=== PATIENT | female | born 1940 | race Caucasian/White ===

== ENCOUNTER 2017-08-29 18:36 | Inpatient (IN) | payer MEDICARE, BC ==
[~2017-08-29] VITALS: Ht 152.4 cm; Wt 75.0 kg
[~2017-08-29 18:36] MED LIST: LIDOCAINE 2 GM/D5W 500 ML BAG ONE
[2017-08-29 18:45] VITALS: Ht 152.4 cm; Wt 75.0 kg
[2017-08-29] MEDS ORDERED: MAGNESIUM SULFATE 2 GM/50 ML 50 ML ONE (18:48)
[2017-08-29] MEDS ORDERED: MAGNESIUM SULFATE 1 GM/D5W 0 ML ONE (18:48)
[2017-08-29] MEDS ORDERED: AMIODARONE 150 MG INJ ONE (18:49)
[2017-08-29] MEDS ORDERED: ONDANSETRON 4 MG INJ IV STA (18:54)
[2017-08-29] MEDS ORDERED: AMIODARONE 900 MG in DEXTROSE 5% 482 ML IV SCH (19:00)
[2017-08-29] MEDS ORDERED: AMIODARONE 150MG/D5W BOLUS 100 ML IV ONE (19:00)
--- NOTE | 2017-08-29 19:36 | RADRPT ---
PROCEDURE: XR Chest. CLINICAL INDICATION: Shortness of breath. Sepsis.. TECHNIQUE: Single frontal chest x-ray. COMPARISON: None. FINDINGS: Patient is status post sternotomy. Heart is mildly enlarged.. There is no congestive heart failure. . No focal infiltrate is seen. There is no pleural effusion. There is no pneumothorax. The osseou s structures are unremarkable. IMPRESSION: Status post sternotomy. Cardiomegaly. No CHF or infiltrate. RPTAT: [facility]K .Esteban Pichardo MD, Date Time Electronically viewed and signed by .Esteban Pichardo MD, on 08/29/2017 19:36 .K/
[2017-08-29 19:43] LABS: BASOPHILS % 0.3 % (0.0-2.0); EOSINOPHILS % 0.1 % (0.0-7.0); HEMATOCRIT 37.3 % (37.0-47.0); HEMOGLOBIN 11.3 g/dl (12.0-16.0); LYMPHOCYTES # 1.1 10^3/ul (0.8-2.9); LYMPHOCYTES % 12.2 % (15.0-51.0); MEAN CORPUSCULAR HEMOGLOBIN 26.6 pg (29.0-33.0); MEAN CORPUSCULAR HGB CONC 30.3 g/dl (32.0-37.0); MEAN CORPUSCULAR VOLUME 87.8 fl (82.0-101.0); MEAN PLATELET VOLUME 12.2 fl (7.4-10.4); MONOCYTE # 0.7 10^3/ul (0.3-0.9); MONOCYTES % 7.3 % (0.0-11.0); NEUTROPHIL # 7.2 10^3/ul (1.6-7.5); NEUTROPHILS % 79.7 % (39.0-77.0); PLATELET COUNT 145 10^3/UL (140-415); RED BLOOD COUNT 4.25 10^6/ul (4.20-5.40); RED CELL DISTRIBUTION WIDTH 16.1 % (11.5-14.5); WHITE BLOOD COUNT 9.1 10^3/ul (4.8-10.8)
[2017-08-29] MEDS: LIDOCAINE 2 GM/D5W 500 ML IV SCH (20:04)
[2017-08-29 20:16] LABS: INR 1.26; PROTIME 15.9 Sec (12.2-14.2); PT RATIO 1.2
[2017-08-29] MEDS ORDERED: CEFEPIME 2GM/50 ML (PMX) 50 ML IVPB STA (20:34)
[2017-08-29] MEDS ORDERED: SODIUM CHLORIDE 0.9% 1L BAG IV* STA (20:34)
[2017-08-29 20:35] LABS: ALBUMIN 3.8 g/dl (3.3-4.9); ALBUMIN/GLOBULIN RATIO 1.35; BILIRUBIN,INDIRECT 0.4 mg/dl (0-1.1); BILIRUBIN,TOTAL 0.4 mg/dl (0.2-1.3); CALCIUM 8.3 mg/dl (8.4-10.2); CREATININE 1.51 mg/dl (0.44-1.00); MAGNESIUM 2.1 mg/dl (1.7-2.5); POTASSIUM 4.9 mmol/L (3.5-5.1); TOTAL PROTEIN 6.6 g/dl (6.1-8.1)
[2017-08-29 20:41] LABS: PARTIAL THROMBOPLASTIN TIME 30.6 Sec (25.0-35.0)
[2017-08-29 20:48] LABS: TROPONIN-I 0.263 ng/ml (0.00-0.12)
[2017-08-29] MEDS ORDERED: LEVO75TA5 PO (20:54)
[2017-08-29] MEDS ORDERED: GLIP-95 PO (20:54)
[2017-08-29] MEDS ORDERED: RANI300T PO (20:55)
[2017-08-29] MEDS ORDERED: ATOR40TA68 PO (20:55)
[2017-08-29] MEDS ORDERED: CLOP75TA4 PO (20:56)
[2017-08-29] MEDS ORDERED: RABE20TA27 PO (20:56)
[2017-08-29] MEDS ORDERED: NEBI20TA2 PO (20:57)
[2017-08-29] MEDS ORDERED: VALS320T11 PO (20:57)
[2017-08-29] MEDS ORDERED: METF500T3 PO (20:57)
[2017-08-29] MEDS ORDERED: LIRA0.6P2 SQ (20:58)
[2017-08-29] MEDS ORDERED: CANA300T PO (21:00)
[2017-08-29] MEDS ORDERED: VANCOMYCIN 1 GM (PMX) 250 ML IVPB ONE (21:00)
[2017-08-29] MEDS ORDERED: ESTR10TA6 VG (21:00)
[2017-08-29] MEDS ORDERED: HEPARIN 25000 UNITS/250 ML 250 ML IV STA (21:16)
[2017-08-29 21:30] VITALS: TEMP 98.5
[2017-08-29] MEDS ORDERED: ACETAMINOPHEN 650MG/20.3ML CUP PO PRN (21:30)
--- NOTE | 2017-08-29 21:39 | ERD ---
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 While this patient was in route to the hospital this patient did have a run of ventricular tachycardia according to EMS. The patient stated that she was having some mild chest discomfort however denied having any sharp chest pain. According to EMS this patient's ventricular tachycardia subsided on arrival to the emergency room. The patient states that she has some chest discomfort but denies any chest pain , she states that she has mild shortness of breath and does feel mildly nauseous. She does state that she has a history of quadruple bypass, and subsequent stents placed in the bypass grafts. This patient denies any aggravating or relieving factors for her symptoms and was brought to the ER for further evaluation ROS All systems reviewed and are negative except as per history of present illness. Medications Home Meds Reported Medications Zolpidem Tartrate* (Zolpidem Tartrate* ER) 12.5 Mg Tab.mphase, 12.5 MG PO HS Y for INSOMNIA, #30 TAB.SA 08/29/17 Aspirin* (Aspirin* EC) 81 Mg Tablet.dr, 81 MG PO DAILY, TAB 08/29/17 Folic Acid* (Folic Acid*) 0.4 Mg Tablet, 0.4 MG PO DAILY, TAB 08/29/17 Cholecalciferol (Vitamin D3) (Vitamin D-3) 2,000 Unit Tablet, 2000 UNIT PO DAILY , TAB 08/29/17 Cyanocobalamin* (Vitamin B12*) 500 Mcg Tab, 500 MCG PO DAILY, TAB 08/29/17 Pyridoxine Hcl* (Vitamin B-6*) 100 Mg Tablet, 100 MG PO DAILY, TAB 08/29/17 Insulin Glargine,Hum.rec.anlog (Touteresa Solostar) 300 Unit/1 Ml Insuln.pen, 0 SQ QAM inject 6-8 units qam 08/29/17 Canagliflozin (Invokana) 300 Mg Tablet, 300 MG PO DAILY, TAB 08/29/17 Estradiol (Yuvafem) 10 Mcg Tablet, 10 MCG VG TWICE A WEEK, TAB 08/29/17 Liraglutide (Victoza 3-Ron) 0.6 Mg/0.1 Ml Pen.injctr, 1.8 MG SQ DAILY, SYR 08/29/17 Nebivolol Hcl* (Bystolic*) 20 Mg Tablet, 20 MG PO DAILY, #30 TAB 08/29/17 Valsartan* (Diovan*) 320 Mg Tablet, 320 MG PO DAILY, TAB 08/29/17 Metformin Hcl* (Metformin Hcl* ER) 500 Mg Tab.sr.24h, 1000 MG PO BID, #30 TAB 08/29/17 Rabeprazole Sodium* (Rabeprazole Sodium*) 20 Mg Tablet.dr, 20 MG PO DAILY, TAB 08/29/17 Clopidogrel Bisulfate* (Clopidogrel Bisulfate*) 75 Mg Tablet, 75 MG PO DAILY, # 30 TAB 08/29/17 Atorvastatin* (Atorvastatin*) 40 Mg Tablet, 40 MG PO QHS, #30 TAB 08/29/17 Ranitidine Hcl* (Ranitidine Hcl*) 300 Mg Tablet, 300 MG PO DAILY, #30 TAB 08/29/17 Levothyroxine Sodium* (Levothyroxine Sodium*) 75 Mcg Tablet, 75 MCG PO BEFORE BREAKFAST, #30 TAB 08/29/17 Glipizide* (Glipizide*) 10 Mg Tablet, 10 MG PO AC BREAKFAST, TAB 08/29/17 Allergies Allergies: Coded Allergies: amlodipine (Unverified Allergy, Unknown, 08/29/17) codeine (Unverified Allergy, Unknown, 08/29/17) fenofibrate (Unverified Allergy, Unknown, 08/29/17) hydrochlorothiazide (Unverified Allergy, Unknown, 08/29/17) ramipril (Unverified Allergy, Unknown, 08/29/17) Uncoded Allergies: OPIOIDS-MORPHINE AND RELATED (Allergy, Unknown, 08/29/17) PMhx/Soc History of Surgery: Yes (QUAD BY-PASS 1958) Anesthesia Reaction: No Hx Neurological Disorder: No Hx Respiratory Disorders: No Hx Cardiac Disorders: Yes (HTN, STENTS, ID) Hx Psychiatric Problems: No Hx Miscellaneous Medical Probl: Yes (DM, UTI) Hx Alcohol Use: No Hx Substance Use: No Hx Tobacco Use: No Smoking Status: Never smoker Physical Exam Vitals Vital Signs Date Time Temp Pulse Resp B/P Pulse Ox O2 Delivery O2 Flow Rate FiO2 08/29/17 21:30 98.5 98 26 94/66 100 Nasal Cannula 3.0 08/29/17 21:00 98.5 100 26 91/62 100 Nasal Cannula 3.0 08/29/17 20:31 99.3 99 23 131/74 100 Nasal Cannula 3.0 08/29/17 20:00 99.3 97 32 126/60 100 Nasal Cannula 3.0 08/29/17 19:45 99.3 98 29 136/64 99 Nasal Cannula 3.0 08/29/17 19:20 89 Nasal Cannula 2.0 08/29/17 19:01 100 18 136/74 93 Nasal Cannula 2.0 08/29/17 18:58 102 118/88 95 Non Rebreather 5.0 08/29/17 18:53 117 99/66 08/29/17 18:45 220 30 152/67 86 08/29/17 18:42 Non Rebreather 5 08/29/17 18:42 98.0 114 152/67 100 Non Rebreather 5.0 Physical Exam Const: [] Head: Atraumatic Eyes: Normal Conjunctiva ENT: Normal External Ears, Nose and Mouth. Neck: Full range of motion..~ No meningismus. Resp: Clear to auscultation bilaterally Cardio: Regular rate and rhythm, no murmurs Abd: Soft, non tender, non distended. Normal bowel sounds Skin: No petechiae or rashes Back: No midline or flank tenderness Ext: No cyanosis, or edema Neur: Awake and alert Psych: Normal Mood and Affect Result Diagram: 08/29/17 1905 08/29/172015 Results 24 hrs Laboratory Tests Test 08/29/17 19:05 08/29/17 20:16 08/29/17 20:49 08/29/17 21:05 White Blood Count 9.110^3/ul Red Blood Count 4.2510^6/ul Hemoglobin 11.3g/dl Hematocrit 37.3% Mean Corpuscular Volume 87.8fl Mean Corpuscular Hemoglobin 26.6pg Mean Corpuscular Hemoglobin Concent 30.3g/dl Red Cell Distribution Width 16.1% Platelet Count 11102^3/UL Mean Platelet Volume 12.2fl Neutrophils % 79.7% Lymphocytes % 12.2% Monocytes % 7.3% Eosinophils % 0.1% Basophils % 0.3% Nucleated Red Blood Cells % 0.0/100WBC Neutrophils # 7.210^3/ul Lymphocytes # 1.110^3/ul Monocytes # 0.710^3/ul Eosinophils # 0.010^3/ul Basophils # 0.010^3/ul Nucleated Red Blood Cells # 0.010^3/ul Prothrombin Time 15.9Sec Prothrombin Time Ratio 1.2 INR International Normalized Ratio 1.26 Activated Partial Thromboplast Time 30.6Sec Bedside Glucose 215mg/dL Sodium Level 129mmol/L Potassium Level 4.9mmol/L Chloride Level 93mmol/L Carbon Dioxide Level 14mmol/L Anion Gap 27 Blood Urea Nitrogen 25mg/dl Creatinine 1.51mg/dl Glucose Level 311mg/dl Lactic Acid Level 8.4mmol/L 6.9mmol/L Calcium Level 8.3mg/dl Magnesium Level 2.1mg/dl Total Bilirubin 0.4mg/dl Direct Bilirubin 0.00mg/dl Indirect Bilirubin 0.4mg/dl Aspartate Amino Transf (AST/SGOT) 59IU/L Alanine Aminotransferase (ALT/SGPT) 49IU/L Alkaline Phosphatase 66IU/L Troponin I 0.263ng/ml Total Protein 6.6g/dl Albumin 3.8g/dl Globulin 2.80g/dl Albumin/Globulin Ratio 1.35 Urine Color MARY KAY Urine Clarity SLIGHTLY CLOUDY Urine pH 5.0 Urine Specific [place] 1.017 Urine Ketones TRACEmg/dL Urine Nitrite NEGATIVEmg/dL Urine Bilirubin NEGATIVEmg/dL Urine Urobilinogen NEGATIVEmg/dL Urine Leukocyte Esterase 3+Angelina/ul Urine Microscopic RBC 13/HPF Urine Microscopic WBC 66/HPF Urine Squamous Epithelial Cells FEW/HPF Urine Bacteria MODERATE/HPF Urine Hemoglobin 2+mg/dL Urine Glucose 3+mg/dL Urine Total Protein 1+mg/dl Current Medications Medications (Trade) Dose Ordered Sig/Ke Route PRN Reason Start Time Stop Time Status Last Admin Dose Admin Amiodarone HCl 100 ml @ 600 mls/hr ONCE ONCE IV 08/29/17 19:00 08/29/17 19:09 DC Magnesium Sulfate/ Dextrose 0 ml @ STK-MED ONCE .ROUTE 08/29/17 18:48 08/29/17 18:49 DC Magnesium Sulfate (Magnesium Sulfate 2 Gm/50 ml) 50 ml @ STK-MED ONCE .ROUTE 08/29/17 18:48 08/29/17 18:49 DC Amiodarone HCl 150 mg 150 mg STK-MED ONCE .ROUTE 08/29/17 18:49 08/29/17 18:50 DC Amiodarone HCl/ Dextrose (Cordarone Iv/ D5W) 500 ml @ 0 mls/hr Q0M IV 08/29/17 19:00 08/30/17 18:59 08/29/17 19:13 Ondansetron HCl 4 mg 4 mg ONCE STAT IV 08/29/17 18:54 08/29/17 18:55 DC 08/29/17 19:25 Lidocaine HCl/ Dextrose 500 ml @ 15 mls/hr Q24H IV 08/29/17 20:30 08/29/17 20:04 Cefepime HCl 50 ml @ 100 mls/hr ONCE STAT IVPB 08/29/17 20:34 08/29/17 21:03 DC 08/29/17 20:55 Vancomycin HCl (Vancocin) 250 ml @ 125 mls/hr ONCE ONCE IVPB 08/29/17 21:00 08/29/17 22:59 08/29/17 20:55 Sodium Chloride 2330 ml 2,330 ml BOLUS OVER 2 HOURS STAT IV* 08/29/17 20:34 08/29/17 20:35 DC 08/29/17 20:56 Heparin Sodium (Porcine) (Heparin 42799 Units/250 ml) 250 ml @ 0 mls/hr ONCE STAT IV 08/29/17 21:16 08/29/17 21:17 DC 08/29/17 22:41 Ondansetron HCl (Zofran Tab) 4 mg Q6H PRN PO NAUSEA AND/OR VOMITING 08/29/17 21:30 Acetaminophen (Tylenol Liquid) 650 mg Q6H PRN PO PAIN LEVEL 1-3 OR FEVER 08/29/17 21:30 Pantoprazole (Protonix Iv) 40 mg DAILY@06 IV 08/30/17 06:00 Procedures/MDM Chest X-ray 1V Interpreted by me: Soft Tissue: No acute abnormalities Bones: No acute abnormalities Mediastinum/Cardiac Silhouette/Lungs: [No acute abnormalities] EKG: #1 Rate/Rhythm: Sinus tachycardia QRS, ST, T-waves: Incomplete left bundle branch block with ST and T-wave abnormalities in the inferior leads Impression: [No evidence of acute ischemia EKG: #2 Rate/Rhythm: Ventricular tachycardia QRS, ST, T-waves: [No changes consistent w/ acute ischemia] Impression: Ventricular tachycardia EKG: #3 Rate/Rhythm: [Normal Sinus Rhythm] QRS, ST, T-waves: ST and T-wave abnormalities in the inferior and lateral leads Impression: Seen T-wave abnormalities in inferior lateral leads This 77-year-old female presents to the emergency room for evaluation of generalized weakness, mild nausea and chest discomfort. This patient did have a bout of ventricular tachycardia prior to arrival. As I was examining this patient this patient did convert to ventricular tachycardia. She was given 150 mg bolus of amiodarone, and was subsequently placed on amiodarone drip. This patient did tolerate amiodarone drip however she again converted to ventricular tachycardia. At that point I did push 75 mg of intravenous lidocaine. The patient was then started on a lidocaine drip as well. I did contact this patient's admitting physician Dr. Sparks who recommended Dr. Leslie be consulted. I did contact the safety leader,concrete tile machine operator, Dr. peter and have reviewed the case with him. He recommended to continue the amiodarone drip in the lidocaine drip. This patient again started to go into ventricular tachycardia however she spontaneously cardioverted out of ventricular tachycardia and had a run of approximately 8 beats. At that point I repeated an EKG I noted some abnormalities in aVR. I did contact our identification technician on-call, Dr. Downs to review the EKG with him to determine whether or not this patient is a candidate for immediate PCI. I have reviewed all EKGs with him and he has reviewed them himself and he agrees that the patient does not need intermediate intervention at this time. He did recommend the patient be placed on a heparin drip. I did start a heparin drip on this patient I received a phone call from Dr. Salazar who states that he would like to be the primary admitting physician. Dr. Sparks was updated and he is in agreement with this. At this point Dr. Downs will be placed on consult for cardiology, and Dr. Salazar will be the primary admitting physician. dr. Yañez is aware and in agreement. This patient will be placed in the intensive care unit at this time Critical Care: Excluding all billable procedures Time: 60 minutes Treatments/Evaluations: Close monitoring and treatment of unstable vital signs, cardiorespiratory, and neurologic status, while maintaining tight balance of fluid, respiratory, and cardiac interventions. Chemical cardioversion: Pre-assessment performed. See preceding complete history and physical for details. Time out performed. Apartment Leasing Specialist, Continuous Pulse Ox. See sedation documentation for details. Technique: 150 mg amiodarone bolus, subsequent amiodarone drip, lidocaine bolus and lidocaine drip Departure Diagnosis: Primary Impression: Ventricular tachycardia Additional Impressions: Chest pain Renal insufficiency Hyponatremia Condition: Serious FRANCESCA BUSBY DO Aug 29, 2017 21:39
[2017-08-29] MEDS ORDERED: CYAN500T46 PO (22:03)
[2017-08-29] MEDS ORDERED: PYRI100T59 PO (22:03)
[2017-08-29] MEDS ORDERED: INSU300I SQ (22:03)
[2017-08-29] MEDS ORDERED: FOLI0.4T2 PO (22:04)
[2017-08-29] MEDS ORDERED: CHOL20002 PO (22:04)
[2017-08-29] MEDS ORDERED: ASPI-664 PO (22:05)
[2017-08-29] MEDS ORDERED: ZOLP12.54 PO (22:07)
[2017-08-29 22:40] LABS: ADD UMIC YES; UR ASCORBIC ACID NEGATIVE (NEGATIVE); UR BACTERIA MODERATE /HPF (NONE SEEN); UR BILIRUBIN (Dip) NEGATIVE (NEGATIVE); UR BLOOD (Dip) 2+ mg/dL (NEGATIVE); UR CLARITY SLIGHTLY CLOUDY (CLEAR); UR COLOR AMBER (YELLOW); UR GLUCOSE (Dip) 3+ mg/dL (NEGATIVE); UR KETONES (Dip) TRACE mg/dL (NEGATIVE); UR LEUKOCYTE ESTERASE (Dip) 3+ Leu/ul (NEGATIVE); UR NITRITE (Dip) NEGATIVE (NEGATIVE); UR RBC 13 /HPF (0-5); UR SPECIFIC GRAVITY (Dip) 1.017 (1.003-1.030); UR SQUAMOUS EPITHELIAL CELL FEW /HPF (FEW); UR TOTAL PROTEIN (Dip) 1+ mg/dl (NEGATIVE); UR UROBILINOGEN (Dip) NEGATIVE (NEGATIVE)
[2017-08-30] VITALS (60 sets, daily range): BP systolic 71–123; BP diastolic 39–92; PULSE 57–74; RESP 12–26
[2017-08-30] MEDS ORDERED: HEPARIN 25000 UNITS/250 ML 250 ML IV SCH (01:00)
[2017-08-30] MEDS ORDERED: GLUCOSE GEL 15 GRAM TUBE BUCCAL PRN (01:15)
[2017-08-30] MEDS ORDERED: GLUCAGON 1 MG INJ IM PRN (01:15)
[2017-08-30] MEDS ORDERED: GLUCOSE GEL 15 GRAM TUBE PO PRN ×2 (01:15)
[2017-08-30] MEDS ORDERED: DEXTROSE 50% 50 ML SYRINGE IV PRN ×2 (01:15)
[2017-08-30] MEDS: HEPARIN 25000 UNITS/250 ML 250 ML IV SCH ×2 (01:21→15:23)
[2017-08-30] MEDS ORDERED: SOD CHLORIDE 0.9% 500 ML IV ONE (01:30)
[2017-08-30 01:57] LABS: ALBUMIN 2.8 g/dl (3.3-4.9); ALBUMIN/GLOBULIN RATIO 0.93; BILIRUBIN,INDIRECT 0.4 mg/dl (0-1.1); BILIRUBIN,TOTAL 0.4 mg/dl (0.2-1.3); CALCIUM 7.6 mg/dl (8.4-10.2); CREATININE 1.5 mg/dl (0.44-1.00); POTASSIUM 4.9 mmol/L (3.5-5.1); TOTAL PROTEIN 5.8 g/dl (6.1-8.1)
[2017-08-30] MEDS ORDERED: NORepinephrine 8MG/250 ML (PMX 250 ML IV SCH (02:15)
[2017-08-30] MEDS: INSULIN ASPART [NOVOLOG] 3 ML PEN SC SCH ×5 (05:23→20:33)
[2017-08-30] MEDS ORDERED: PANTOPRAZOLE 40 MG INJ IV SCH (06:00)
[2017-08-30] MEDS ORDERED: SOD CHLORIDE 0.9% 250 ML IV ONE (08:00)
[2017-08-30] MEDS: SOD CHLORIDE 0.9% 1,000 ML IV SCH ×2 (08:40→16:33)
[2017-08-30] MEDS ORDERED: RANITIDINE 150 MG TAB PO SCH (09:00)
[2017-08-30] MEDS ORDERED: RABEPRAZOLE SODIUM 20 MG PO SCH (09:00)
[2017-08-30] MEDS ORDERED: ESTRADIOL 10 MCG VG SCH (09:00)
[2017-08-30] MEDS ORDERED: ZOLPIDEM 5 MG TAB PO PRN (09:30)
--- NOTE | 2017-08-30 09:43 | PREOPHP ---
DATE OF ADMISSION: 08/29/2017 REASON FOR ADMISSION: Weakness, shortness of breath and ventricular tachycardia. HISTORY OF PRESENT ILLNESS: This 77-year-old female was in her usual state of health until yesterda y when she went to her retinal specialist to have an injection in her left eye. At that time, she s tarted to feel "shaky." She thought that her blood sugar dropped and she ate a candy bar; however, she continued to feel weak. She immediately went to see her primary care physician, Dr. Travis keith. At that time, she saw Dr. Suárez the patient was short of breath. Her EKG showed ventricular tach ycardia. He did a dipstick on her urine which was consistent with urinary tract infection. Dr. Darell you called the paramedics and the patient was taken to the nearest hospital, which was [facility]. On admission to the emergency room, the patient was found to be in v entricular tachycardia. She was started on an amiodarone drip and she converted to normal sinus rhy thm. The patient overall improved after going into sinus rhythm. She is now awake and alert and ab le to give a complete history. She denies any chest pain or shortness of breath. She is growing gr am-negative bacteria in her blood. She has had some dysuria. She has a history of recurrent urinar y tract infections and has been on antibiotics. The patient does have a history of coronary artery disease and is status post a CABG in 1998 and a stent in 2006, which I will detail below. CURRENT MEDICATIONS: Include the followin. Zolpidem extended release 12.5 mg at bedtime. 2. Aspirin 81 mg a day. 3. Folic acid 0.4 mg a day. 4. Cholecalciferol 2000 units a day. 5. Vitamin B12 500 mcg a day. 6. Pyridoxine 100 mg a day. 7. Toujeo insulin 8 units in the morning. 8. Invokana 300 mg a day. 10. Estradiol 10 mcg a day. 11. 0.6 mg subq daily. 12. Metformin 1000 mg twice a day. 13. Aripiprazole 20 mg a day. 14. Plavix 75 mg a day. 15. Atorvastatin 40 mg a day. 16. Ranitidine 300 mg a day. 17. Levothyroxine 75 mcg a day. 18. Glipizide 10 mg at breakfast. ALLERGIES: 1. AMLODIPINE. 2. CODEINE. 3. FENOFIBRATE. 4. HYDROCHLOROTHIAZIDE. 5. RAMAPRIL. 6. OPIOIDS, SPECIFICALLY MORPHINE. PAST SURGICAL HISTORY: Remarkable for coronary artery bypass grafting in 1998 at [facility] by Dr. Bear, coronary artery stent placed in [address] Terrell, tonsillecto my at age 22, hysterectomy for fibroids, ovaries removed. PAST MEDICAL HISTORY: Remarkable for coronary artery disease, hypertension, type 2 diabetes mellitu s, recurrent urinary tract infections. 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 She does not smoke, drinks alcohol socially. REVIEW OF SYSTEMS: CONSTITUTIONAL: Head negative. EARS, NOSE AND THROAT: Negative. CARDIORESPIRATORY: See above. GASTROINTESTINAL: Negative. GENITOURINARY: Dysuria. NEUROMUSCULAR: No focal neurologic deficits. PHYSICAL EXAMINATION: GENERAL: At this time reveals a well-developed female in no apparent distress. She is awake and al ert. VITAL SIGNS: Her pulse is 59, respirations 15, blood pressure 90/49, O2 saturation 96% on 2 liter n sheeba cannula. HEENT: Head normocephalic. Eyes: Extraocular muscles intact. NOSE AND MOUTH: Normal. NECK: Supple. No neck vein distention. LUNGS: Clear to auscultation. HEART: Regular rhythm. No murmurs, gallops or rubs. Well-healed midline sternotomy scar. ABDOMEN: Soft, nontender, no masses or megaly. She has a Mei catheter in place. EXTREMITIES: No peripheral edema. NEUROLOGIC: Grossly intact. No obvious neurologic deficits. IMPRESSION: 1. Urinary tract infection with bacteriemia growing gram-negative rods in blood. 2. Ventricular tachycardia, now in sinus rhythm. 3. Coronary artery disease. 4. Hypotensive on Levophed drip. 5. Acute kidney injury superimposed on chronic kidney disease. 6. Type 2 diabetes mellitus, on insulin. 7. Hyperlipidemia. 8. Gastroesophageal reflux disease. PLAN: 1. Cardiology consultation. 2. Start IV fluids as I suspect patient is dry. 3. Taper off pressors as tolerated. 4. Sliding insulin scale now as she is n.p.o. for possible coronary angiogram. 5. Infectious disease consultation. 6. Continue ICU care. Dictated By: CHRISTINE ABRAMS MD, ND/RAFAT Conf#: [id number] DID#: [id number]
[2017-08-30] MEDS ORDERED: ESTRADIOL 10 MCG XX SCH (10:00)
[2017-08-30] MEDS ORDERED: [UNRECOGNIZED DRUG - OTHER] XX SCH (10:00)
[2017-08-30] MEDS: LEVOTHYROXINE 75 MCG TAB PO SCH (10:10)
[2017-08-30] MEDS: CYANOCOBALAMIN 500 MCG TAB PO SCH (10:11)
--- NOTE | 2017-08-30 10:45 | CONS ---
Date/Time of Note Date/Time of Note DATE: 08/30/17 TIME: 10:33 Assessment/Plan Assessment/Plan Chief Complaint/Hosp Course 1) UTI with bacteremia initial look at urine is c/w e.coli pt had e.coli in the past few weeks and completed a course of amoxicillin for this one week ago she had some shaking chills 2 days ago and yesterday continue with cefepime at present till sensi's are known to cover more resistant forms of e.coli 2) ARF pt normally has creatinine around 1 will order renal u/s but likely this increase in creatinine is from the infection and sepsis 3) DM pt states her sugars have been good recently 4) CAD with v-tach upon admission likely due to intervening infection and bacteremia as etiology Problems: Consultation Date/Type/Reason Admit Date/Time Aug 29, 2017 at 21:38 Date of Consultation: Aug 30, 2017 Type of Consultation: ID Hx of Present Illness pt admitted yesterday due to some SOB and shakiness and EKG that showed v-tach the day prior to admission she had some chills pt had finished amoxicillin for e.coli uti one week ago and two days after stopping the antibiotic she developed dysuria Her SOB has resolved, no coughing no rashes, joint pains, V She has occasional diarrhea that she relates to milk or the metformin and was only once this past week Past Medical History CAD, DM, HTN, uterine fibroids, uti's Past Surgical History CABG, cardiac stents, hysterectomy with oopherectomy Social History Smoking Status: Never smoker Exam/Review of Systems Vital Signs Vitals Vital Signs Date Time Temp Pulse Resp B/P Pulse Ox O2 Delivery O2 Flow Rate FiO2 08/30/17 08:30 59 19 107/61 100 Nasal Cannula 2.0 08/30/17 08:15 97.7 Intake and Output 08/29/17 08/29/17 08/30/17 14:59 22:59 06:59 Intake Total 286.42 ml Output Total 960 ml Balance -673.58 ml Exam Constitutional: alert, oriented Eyes: nl sclera ENMT: mucosa pink and moist Neck: supple Respiratory: clear to auscultation Cardiovascular: regular rate and rhythm Gastrointestinal: other (slightly tender at RLQ, no flank tenderness or CVAT), soft Musculoskeletal: other (no edema) Neurological: other (non focal) Results Result Diagram: 08/29/17 1905 08/30/17 0125 Results 24 hrs Laboratory Tests Test 08/29/17 19:05 08/29/17 20:16 08/29/17 20:49 08/29/17 21:05 White Blood Count 9.1 Red Blood Count 4.25 Hemoglobin 11.3 L Hematocrit 37.3 Mean Corpuscular Volume 87.8 Mean Corpuscular Hemoglobin 26.6 L Mean Corpuscular Hemoglobin Concent 30.3 L Red Cell Distribution Width 16.1 H Platelet Count 145 Mean Platelet Volume 12.2 H Neutrophils % 79.7 H Lymphocytes % 12.2 L Monocytes % 7.3 Eosinophils % 0.1 Basophils % 0.3 Nucleated Red Blood Cells % 0.0 Neutrophils # 7.2 Lymphocytes # 1.1 Monocytes # 0.7 Eosinophils # 0.0 Basophils # 0.0 Nucleated Red Blood Cells # 0.0 Prothrombin Time 15.9 H Prothrombin Time Ratio 1.2 INR International Normalized Ratio 1.26 Activated Partial Thromboplast Time 30.6 Bedside Glucose 215 Sodium Level 129 L Potassium Level 4.9 Chloride Level 93 L Carbon Dioxide Level 14 L Anion Gap 27 H Blood Urea Nitrogen 25 H Creatinine 1.51 H Glucose Level 311 H Lactic Acid Level 8.4 *H 6.9 *H Calcium Level 8.3 L Magnesium Level 2.1 Total Bilirubin 0.4 Direct Bilirubin 0.00 Indirect Bilirubin 0.4 Aspartate Amino Transf (AST/SGOT) 59 H Alanine Aminotransferase (ALT/SGPT) 49 Alkaline Phosphatase 66 Troponin I 0.263 *H Total Protein 6.6 Albumin 3.8 Globulin 2.80 Albumin/Globulin Ratio 1.35 Urine Color MARY KAY Urine Clarity SLIGHTLY CLOUDY A Urine pH 5.0 Urine Specific [place] 1.017 Urine Ketones TRACE A Urine Nitrite NEGATIVE Urine Bilirubin NEGATIVE Urine Urobilinogen NEGATIVE Urine Leukocyte Esterase 3+ H Urine Microscopic RBC 13 H Urine Microscopic WBC 66 H Urine Squamous Epithelial Cells FEW Urine Bacteria MODERATE Urine Hemoglobin 2+ H Urine Glucose 3+ H Urine Total Protein 1+ H Test 08/29/17 22:45 08/30/17 00:58 08/30/17 01:25 08/30/17 05:19 Lactic Acid Level 2.8 *H 1.7 Bedside Glucose 282 H 276 H Activated Partial Thromboplast Time 70.2 *H Sodium Level 123 L Potassium Level 4.9 Chloride Level 95 L Carbon Dioxide Level 18 L Anion Gap 15 # Blood Urea Nitrogen 27 H Creatinine 1.50 H Glucose Level 283 H Calcium Level 7.6 L Total Bilirubin 0.4 Direct Bilirubin 0.00 Indirect Bilirubin 0.4 Aspartate Amino Transf (AST/SGOT) 63 H Alanine Aminotransferase (ALT/SGPT) 57 Alkaline Phosphatase 47 Total Protein 5.8 L Albumin 2.8 #L Globulin 3.00 Albumin/Globulin Ratio 0.93 Test 08/30/17 06:55 08/30/17 09:14 Activated Partial Thromboplast Time 95.0 *H Lactic Acid Level 1.7 Bedside Glucose 179 Medications Medications Current Medications Amiodarone HCl 900 mg/Dextrose 500 ml @ 0 mls/hr Q0M IV Last administered on 19:13; Admin Dose 33.4 MLS/HR; Start 08/29/17 at 19:00; Stop at 18:59 Lidocaine HCl/ Dextrose (Lidocaine 2 Gm/ D5W) 500 ml @ 15 mls/hr Q24H IV Last administered on 08/29/17 20:04; Admin Dose 15 MLS/HR; Start 08/29/17 at 20:30 Ondansetron HCl (Zofran Tab) 4 mg Q6H PRN PO NAUSEA AND/OR VOMITING; Start at 21:30 Acetaminophen (Tylenol Liquid) 650 mg Q6H PRN PO PAIN LEVEL 1-3 OR FEVER; Start 08/29/17 at 21:30 Insulin Aspart (Novolog Insulin Pen) NOVOLOG *MODERATE* ALGORI... Q4 SC Last administered on 08/30/17 05:23; Admin Dose 8 UNIT; Start 08/30/17 at 05:00 Miscellaneous Information 1 ea NOTE XX ; Start 08/30/17 at 01:15 Glucose (Glutose) 15 gm Q15M PRN PO DECREASED GLUCOSE; Start 08/30/17 at 01:15 Glucose (Glutose) 22.5 gm Q15M PRN PO DECREASED GLUCOSE; Start 08/30/17 at 01: 15 Dextrose (D50w Syringe) 25 ml Q15M PRN IV DECREASED GLUCOSE; Start 08/30/17 at 01:15 Dextrose (D50w Syringe) 50 ml Q15M PRN IV DECREASED GLUCOSE; Start 08/30/17 at 01:15 Glucagon (Glucagen) 1 mg Q15M PRN IM DECREASED GLUCOSE; Start 08/30/17 at 01: 15 Glucose 15 gm 15 gm Q15M PRN BUCCAL DECREASED GLUCOSE; Start 08/30/17 at 01:15 Norepinephrine 16 mg/Dextrose 500 ml @ 1.87 mls/hr TITRATE IV ; Start at 07:00 Sodium Chloride (NS) 1,000 ml @ 100 mls/hr Q10H IV Last administered on 08:40; Admin Dose 100 MLS/HR; Start 08/30/17 at 08:00 Aspirin (Halfprin) 81 mg DAILY PO ; Start 08/30/17 at 09:00 Atorvastatin Calcium (Lipitor) 40 mg QHS PO ; Start 08/30/17 at 21:00 Clopidogrel Bisulfate (plaVIX) 75 mg DAILY PO ; Start 08/30/17 at 09:00 Cyanocobalamin (Vitamin B12) 500 mcg DAILY PO Last administered on 08/30/17 10:11; Admin Dose 500 MCG; Start 08/30/17 at 09:00 Folic Acid (Folic Acid) 0.4 mg DAILY PO ; Start 08/30/17 at 09:00 Pyridoxine HCl 100 mg 100 mg DAILY PO ; Start 08/30/17 at 09:00 Cefepime HCl (Maxipime 1gm/50 ml (Pmx)) 50 ml @ 100 mls/hr Q24H IVPB ; Start 08/30/17 at 21:00 Ranitidine HCl (Zantac) 300 mg HS PO ; Start 08/30/17 at 21:00 Pantoprazole (Protonix Tab) 40 mg DAILY@06 PO ; Start 08/31/17 at 06:00 Miscellaneous Information (*Order Clarification Bulletin) (Estradiol (Yuvafem) 10 MCG: PLE... Q8H XX ; Start 08/30/17 at 10:00 KAILASH FORD MD Aug 30, 2017 10:43
[2017-08-30] MEDS: CLOPIDOGREL 75 MG TAB PO SCH (12:07)
[2017-08-30] MEDS: ASPIRIN (EC) 81 MG TAB PO SCH (12:07)
[2017-08-30] MEDS: PYRIDOXINE 50 MG TAB PO SCH (12:08)
[2017-08-30] MEDS: FOLIC ACID 0.4 MG TAB PO SCH (12:08)
--- NOTE | 2017-08-30 13:03 | CONS ---
DATE OF ADMISSION: 08/29/2017 DATE OF CONSULTATION: 08/30/2017 REASON FOR CONSULTATION: Positive troponin, ventricular tachycardia. REQUESTING PHYSICIAN: Marie. HISTORY OF PRESENT ILLNESS: The patient is a 77-year-old female with a history of coronary artery disease, status post coronary artery bypass graft surgery in 1998, PTCA and stent placement in 2006, followed by Dr. Walker at [facility] who initially states that she had went to see her retinal specialist in order to get an injection for treatment of macular degeneration and during this time, became very tremulous and felt generalized weakness. The patient denied chest pain at that time. The patient subsequently presented to her primary care doctor, Dr. Suárez who noted that she was short of breath and did a dipstick in her urine and found that she had a UTI. An EKG showing possible ventricular tachycardia. Therefore, paramedics were called and she was transferred to [facility]. Upon arrival at [facility], initial temperature 98, blood pressure 152/67, pulse 114 , satting 100% on 5 liters. Patient's labs at that time were notable for a white count of 9.1, hemoglobin 11.3, platelet count 145. A sodium of 129, creatinine of 1.51. BUN 25. Troponin 0.263. AST 59, AST 49, INR 1.26. UA positive. The patient underwent a chest x-ray revealing cardiomegaly, no CHF or infiltrate. The patient's initial electrocardiogram had revealed sinus tachycardia, rate of 1.17 with an incomplete bundle branch block and secondary repolarization abnormalities. The patient then had the onset of a wide complex tachyarrhythmia consistent with ventricular tachycardia, rate of 213 for which she received amiodarone with cessation of the rhythm quickly. The patient then had a recurrence of this rhythm and was placed on lidocaine The patient thereafter was maintained on amiodarone and lidocaine in sinus rhythm with no recurrent VT. The patient has now been admitted to ICU and since admit to ICU, has developed hypotension requiring initiation of Levophed pressor support. The patient's blood cultures have returned positive for Gram negative rods and the patient has urinary culture also with Gram-negative rods. At this time, patient denies chest pain, shortness of breath. PAST MEDICAL HISTORY: As above in HPI with patient stating that she thinks she had a stress test in Dr. office within the last year. MEDICATIONS PRIOR TO ADMISSION: Ambien, aspirin, folic acid, vitamin D, pyridoxine, insulin, estradiol, metformin, Plavix 75 mg daily, aspirin 81 mg daily, atorvastatin, Zantac, Synthroid, glipizide, Diovan 320 mg daily, Bystolic 20 mg daily, Lipitor 40 mg nightly. MEDICATIONS CURRENTLY IN HOSPITAL: Protonix, Lipitor 40 mg at bedtime. Cefepime , Zantac. Ambien, aspirin 81 mg daily, Plavix 75 mg daily, Vitamin B12, folic acid, B6, Insulin, heparin IV, amiodarone IV, lidocaine IV, Levophed pressure support. ALLERGIES: OPIOIDS, NORVASC, CODEINE, TRICOR, HYDROCHLOROTHIAZIDE, RAMIPRIL. SOCIAL HISTORY: No tobacco, social ETOH, no illicit drug use. FAMILY HISTORY: Sudden cardiac or early CAD. REVIEW OF SYSTEMS: As above in HPI. CONSTITUTIONAL: No fevers, chills. PULMONARY: No current shortness of breath. CARDIOVASCULAR: Positive troponin ventricle tachycardia. History of coronary artery bypass graft, hypertension. GASTROINTESTINAL: No vomiting. GENITOURINARY: No hematuria. MUSCULOSKELETAL: Degenerative joint disease. PSYCHIATRIC: No documented psych history. NEUROLOGIC: No documented CVA. PHYSICAL EXAMINATION VITAL SIGNS: Temperature of 97.7, blood pressure 107/61, pulse 59, respirations 19, saturating 100% on 2 liters. GENERAL: The patient is alert, awake, in no acute distress. NECK: JVP approximately 9 cm water. CHEST: Fair air movement throughout. HEART: Bradycardic, regular rhythm, normal S1, S2, I/ systolic murmur, nondisplaced PMI. ABDOMEN: Positive bowel sounds, soft. EXTREMITIES: No pitting edema, 1+ pulses bilaterally, posterior tibial. LABORATORIES: As above in HPI with most recently from today, sodium now 123 down from 129, creatinine 1.5, BUN of 27, AST 63, ALT 57. UA positive. IMAGING STUDIES: As above in HPI. No further imaging studies for my review at this time. ECG: As above in HPI. No further electrocardiograms for my review at this time. IMPRESSION: 1. Positive troponin in the setting of ventricular tachycardia, but no coronary artery disease. Assess for ongoing troponin elevation concerning for treatment of non-ST elevation myocardial infarction and possibly lending to ventricular tachycardia. 2. 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 3. Abnormal electrocardiogram with intraventricular conduction delay and secondary repolarization abnormalities and possible superimposed ischemic changes. 4. History of coronary artery disease, status post coronary artery bypass grafting, 1998. 5. History of percutaneous transluminal coronary angioplasty and stent placement in 2006. 6. Renal failure. 7. Septic shock on vasopressor support. 8. Hyponatremia. 9. Renal failure. 10. Bacteremia. 11. Urinary tract infection. 12. Anemia. RECOMMENDATIONS: 1. At this time, would maintain the patient in the ICU monitoring and wean the patient via vasopressor support as tolerated. 2. Will trend the patient's cardiac enzymes to assess for any significant ongoing cardiac damage and need for an earlier invasive approach to assess the patient's coronary vasculature, otherwise continue the patient's dual antiplatelet therapy with aspirin and Plavix at this time for stent patency and heparin. While we continue to follow the patient's troponins closely. 3. Check serial EKGs to assess for any significant ongoing changes. 4. Check 2-D echo to assess the patient's ejection fraction, wall motion and any major valve abnormalities. 5. Continue the patient's antibiotics and follow up all culture data. 6. Check a TSH to assess the patient's current thyroid state, given hypothyroidism on Synthroid. 7. We will continue the patient's amiodarone at this time and will attempt to wean the patient's lidocaine and transition patient to p.o. amiodarone alone. 8. Will contact the patient's primary grinder set up operator internal's to further ascertain the patient's history including previous number of grafts, prior coronary vasculature, during prior catheterization and recent result stress test and echo. Thank you for allowing me to take part in the care of this patient. I will continue to follow very closely with you with further recommendations to be made as the patient progresses through her inpatient hospital clinical course. Dictated By: MARCUS LEWIS/RAFAT Conf#: [id number] DID#: [id number] CC: MARCUS TOURE MD; CHRISTINE ABRAMS MD;*EndCC* MTDD
[2017-08-30 14:25] LABS: CK-MB 3.42 ng/ml (0.0-2.4)
[2017-08-30 14:29] LABS: TROPONIN-I 0.813 ng/ml (0.00-0.12)
--- NOTE | 2017-08-30 15:00 | RADRPT ---
PROCEDURE: Renal US. CLINICAL INDICATION: Acute kidney injury. TECHNIQUE: Multiple sonographic images of the kidneys and urinary bladder were obtained. The imag es were reviewed on a PACS workstation. COMPARISON: No prior studies are available for comparison. FINDINGS: The right kidney measures 10.7 cm. The left kidney measures 7.0 cm. There is no renal mass. There is no hydronephrosis. There is no renal calculus. Renal parenchymal thickness is normal bilaterally. Echogenicity is normal bilaterally. The perirenal regions are normal with no fluid collection or mass. There is a Mei catheter in the bladder. IMPRESSION: 1. No hydronephrosis. 2. Mei catheter in the bladder. 3. Otherwise unremarkable renal ultrasound. RPTAT: QQ .Manny Mckeon MD, Date Time Electronically viewed and signed by .Manny Mckeon MD, on 08/30/2017 15:00 .R/
--- NOTE | 2017-08-30 15:19 | RADRPT ---
Vent Rate: 58 bpm RR Interval: 0 msec [place] Interval: 222 msec QRS Duration: 110 msec QT Interval: 524 msec QTC Interval: 514 msec P-R-T [place]: 46 - -17 - -5 degrees Sinus bradycardia with 1st degree AV block T wave abnormality, consider anterior ischemia Prolonged QT Abnormal ECG Electronically Signed By: Esteban Leslie [id number]
[2017-08-30] MEDS: AMIODARONE 200 MG TAB PO SCH (16:03)
[2017-08-30 19:41] LABS: CK-MB 3.32 ng/ml (0.0-2.4)
[2017-08-30 19:43] LABS: TROPONIN-I 0.695 ng/ml (0.00-0.12)
[2017-08-30] MEDS ORDERED: SOD CHLORIDE 0.9% 1,000 ML IV SCH (20:00)
[2017-08-30] MEDS: RANITIDINE 150 MG TAB PO SCH (20:17)
[2017-08-30] MEDS: ATORVASTATIN 40 MG TAB PO SCH (20:17)
[2017-08-30] MEDS: LIDOCAINE 2 GM/D5W 500 ML IV SCH (20:30)
[2017-08-30] MEDS ORDERED: CEFEPIME 1GM/50 ML (PMX) 50 ML IVPB SCH (21:00)
[2017-08-30] MEDS: ONDANSETRON 4 MG TAB PO PRN (23:53)
[2017-08-31] VITALS (22 sets, daily range): BP systolic 90–144; BP diastolic 40–81; PULSE 61–75; RESP 18–21
[2017-08-31] MEDS: INSULIN ASPART [NOVOLOG] 3 ML PEN SC SCH ×6 (00:44→21:00)
[2017-08-31 01:37] LABS: CK-MB 2.98 ng/ml (0.0-2.4)
[2017-08-31 01:42] LABS: TROPONIN-I 0.52 ng/ml (0.00-0.12)
[2017-08-31] MEDS: HEPARIN 25000 UNITS/250 ML 250 ML IV SCH (03:35)
[2017-08-31 03:48] LABS: CHOL/HDL RATIO 3.5 RATIO
[2017-08-31 03:49] LABS: CALCIUM 8.1 mg/dl (8.4-10.2); CREATININE 1.08 mg/dl (0.44-1.00); POTASSIUM 4.2 mmol/L (3.5-5.1)
[2017-08-31 04:05] LABS: BASOPHILS % 0.4 % (0.0-2.0); EOSINOPHILS % 0.4 % (0.0-7.0); HEMATOCRIT 31.6 % (37.0-47.0); LYMPHOCYTES # 1.9 10^3/ul (0.8-2.9); LYMPHOCYTES % 17.4 % (15.0-51.0); MEAN CORPUSCULAR HEMOGLOBIN 26.5 pg (29.0-33.0); MEAN CORPUSCULAR HGB CONC 31.6 g/dl (32.0-37.0); MEAN CORPUSCULAR VOLUME 83.6 fl (82.0-101.0); MONOCYTE # 1.2 10^3/ul (0.3-0.9); MONOCYTES % 11.6 % (0.0-11.0); NEUTROPHIL # 7.4 10^3/ul (1.6-7.5); NEUTROPHILS % 69.3 % (39.0-77.0); PLATELET COUNT 148 10^3/UL (140-415); RED BLOOD COUNT 3.78 10^6/ul (4.20-5.40); RED CELL DISTRIBUTION WIDTH 16.2 % (11.5-14.5); WHITE BLOOD COUNT 10.7 10^3/ul (4.8-10.8)
[2017-08-31] MEDS ORDERED: PANTOPRAZOLE (EC) 40 MG TAB PO SCH (06:00)
[2017-08-31] MEDS: LEVOTHYROXINE 75 MCG TAB PO SCH (06:34)
--- NOTE | 2017-08-31 07:40 | CONS ---
Date/Time of Note Date/Time of Note DATE: 08/31/17 TIME: 07:37 Assessment/Plan Assessment/Plan Chief Complaint/Hosp Course 1) UTI with bacteremia due to e.coli initial look at urine is c/w e.coli pt had e.coli in the past few weeks and completed a course of amoxicillin for this one week ago she had some shaking chills 2 days ago and yesterday continue with cefepime at present till sensi's are known to cover more resistant forms of e.coli 08/31 - e.coli in urine and likely blood change to IV ceftriaxone (resistant to amp, cefazolin and bactrim) pt will need a 2 week course of antibiotics but it can be changed to po meds when she is ready for discharge 2) ARF pt normally has creatinine around 1 will order renal u/s but likely this increase in creatinine is from the infection and sepsis 08/31 - renal u/s is WNL creatinine is back to baseline 3) DM pt states her sugars have been good recently 4) CAD with v-tach upon admission likely due to intervening infection and bacteremia as etiology Problems: Consultation Date/Type/Reason Admit Date/Time Aug 29, 2017 at 21:38 Initial Consult Date 08/30/17 Type of Consultation: ID [id number] HR Interval Summary Free Text/Dictation pt had N last night but no V no SOB no abd pain or diarrhea Exam/Review of Systems Vital Signs Vitals Vital Signs Date Time Temp Pulse Resp B/P Pulse Ox O2 Delivery O2 Flow Rate FiO2 08/31/17 07:30 98.8 70 08/31/17 06:00 19 114/55 97 Room Air 08/30/17 11:45 2.0 Intake and Output 08/30/17 08/30/17 08/31/17 15:00 23:00 07:00 Intake Total 1264.725 ml 1385.6 ml 492.0 ml Output Total 1450 ml 1250 ml 1650 ml Balance -185.275 ml 135.6 ml -1158.0 ml Exam Constitutional: alert, oriented Head: normocephalic Eyes: nl sclera ENMT: mucosa pink and moist Respiratory: clear to auscultation Cardiovascular: regular rate and rhythm Gastrointestinal: non-tender, soft Results Result Diagram: 08/31/17 0310 08/31/17 0310 Results 24 hrs Laboratory Tests Test 08/30/17 09:14 08/30/17 09:40 08/30/17 13:04 08/30/17 13:42 Bedside Glucose 179 118 Lactic Acid Level 1.7 1.6 Creatine Kinase 151 Creatine Kinase Index 2.3 Creatinine Kinase MB (Mass) 3.42 H Troponin I 0.813 *H B-Type Natriuretic Peptide 80639 H Test 08/30/17 14:37 08/30/17 17:40 08/30/17 18:45 08/30/17 20:26 Activated Partial Thromboplast Time 84.8 *H Bedside Glucose 88 186 Creatine Kinase 133 Creatine Kinase Index 2.5 Creatinine Kinase MB (Mass) 3.32 H Troponin I 0.695 *H Test 08/30/17 21:08 08/31/17 00:41 08/31/17 00:42 08/31/17 03:10 Activated Partial Thromboplast Time 60.1 H 54.2 H Bedside Glucose 161 Creatine Kinase 101 Creatine Kinase Index 3.0 Creatinine Kinase MB (Mass) 2.98 H Troponin I 0.520 *H White Blood Count 10.7 Red Blood Count 3.78 L Hemoglobin 10.0 L Hematocrit 31.6 L Mean Corpuscular Volume 83.6 Mean Corpuscular Hemoglobin 26.5 L Mean Corpuscular Hemoglobin Concent 31.6 L Red Cell Distribution Width 16.2 H Platelet Count 148 Mean Platelet Volume 12.0 H Neutrophils % 69.3 Lymphocytes % 17.4 Monocytes % 11.6 H Eosinophils % 0.4 Basophils % 0.4 Nucleated Red Blood Cells % 0.0 Neutrophils # 7.4 Lymphocytes # 1.9 Monocytes # 1.2 H Eosinophils # 0.0 Basophils # 0.0 Nucleated Red Blood Cells # 0.0 Sodium Level 138 # Potassium Level 4.2 Chloride Level 109 # Carbon Dioxide Level 21 Anion Gap 12 Blood Urea Nitrogen 21 H Creatinine 1.08 H Glucose Level 110 # Calcium Level 8.1 L Triglycerides Level 212 H Cholesterol Level 81 L LDL Cholesterol, Calculated 16 HDL Cholesterol 23 L Cholesterol/HDL Ratio 3.5 Test 08/31/17 05:49 Bedside Glucose 105 Medications Medications Current Medications Lidocaine HCl/ Dextrose (Lidocaine 2 Gm/ D5W) 500 ml @ 15 mls/hr Q24H IV Last administered on 08/29/17t 20:04; Admin Dose 15 MLS/HR; Start 08/29/17 at 20:30 Ondansetron HCl (Zofran Tab) 4 mg Q6H PRN PO NAUSEA AND/OR VOMITING Last administered on 08/30/17 23:53; Admin Dose 4 MG; Start 08/29/17 at 21:30 Acetaminophen (Tylenol Liquid) 650 mg Q6H PRN PO PAIN LEVEL 1-3 OR FEVER; Start 08/29/17 at 21:30 Insulin Aspart (Novolog Insulin Pen) NOVOLOG *MODERATE* ALGORI... Q4 SC Last administered on 08/31/17 00:44; Admin Dose 2 UNIT; Start 08/30/17 at 05:00 Miscellaneous Information 1 ea NOTE XX ; Start 08/30/17 at 01:15 Glucose (Glutose) 15 gm Q15M PRN PO DECREASED GLUCOSE; Start 08/30/17 at 01:15 Glucose (Glutose) 22.5 gm Q15M PRN PO DECREASED GLUCOSE; Start 08/30/17 at 01: 15 Dextrose (D50w Syringe) 25 ml Q15M PRN IV DECREASED GLUCOSE; Start 08/30/17 at 01:15 Dextrose (D50w Syringe) 50 ml Q15M PRN IV DECREASED GLUCOSE; Start 08/30/17 at 01:15 Glucagon (Glucagen) 1 mg Q15M PRN IM DECREASED GLUCOSE; Start 08/30/17 at 01: 15 Glucose 15 gm 15 gm Q15M PRN BUCCAL DECREASED GLUCOSE; Start 08/30/17 at 01:15 Norepinephrine/ Dextrose (Levophed/D5W) 500 ml @ 1.87 mls/hr TITRATE IV ; Start 08/30/17 at 07:00 Aspirin (Halfprin) 81 mg DAILY PO Last administered on 08/30/17 12:07; Admin Dose 81 MG; Start 08/30/17 at 09:00 Atorvastatin Calcium (Lipitor) 40 mg QHS PO Last administered on 08/30/17 20: 17; Admin Dose 40 MG; Start 08/30/17 at 21:00 Clopidogrel Bisulfate (plaVIX) 75 mg DAILY PO Last administered on 08/30/17 12:07; Admin Dose 75 MG; Start 08/30/17 at 09:00 Cyanocobalamin (Vitamin B12) 500 mcg DAILY PO Last administered on 08/30/17 10:11; Admin Dose 500 MCG; Start 08/30/17 at 09:00 Folic Acid (Folic Acid) 0.4 mg DAILY PO Last administered on 08/30/17 12:08; Admin Dose 0.4 MG; Start 08/30/17 at 09:00 Pyridoxine HCl 100 mg 100 mg DAILY PO Last administered on 08/30/17 12:08; Admin Dose 100 MG; Start 08/30/17 at 09:00 Cefepime HCl (Maxipime 1gm/50 ml (Pmx)) 50 ml @ 100 mls/hr Q24H IVPB Last administered on 08/30/17 20:17; Admin Dose 100 MLS/HR; Start 08/30/17 at 21: 00 Ranitidine HCl (Zantac) 300 mg HS PO Last administered on 08/30/17 20:17; Admin Dose 300 MG; Start 08/30/17 at 21:00 Amiodarone HCl 400 mg 400 mg BID PO Last administered on 08/30/17 16:03; Admin Dose 400 MG; Start 08/30/17 at 16:00 Sodium Chloride (NS) 1,000 ml @ 50 mls/hr Q20H IV Last administered on 20:16; Admin Dose 50 MLS/HR; Start 08/30/17 at 20:00 KAILASH FORD MD Aug 31, 2017 07:40
[2017-08-31] MEDS ORDERED: CEFTRIAXONE 1 GM/50 ML (PMX) 50 ML IVPB SCH (08:00)
[2017-08-31] MEDS: ASPIRIN (EC) 81 MG TAB PO SCH (08:33)
[2017-08-31] MEDS: FOLIC ACID 0.4 MG TAB PO SCH (08:33)
[2017-08-31] MEDS: AMIODARONE 200 MG TAB PO SCH ×2 (08:33→20:55)
[2017-08-31] MEDS: CLOPIDOGREL 75 MG TAB PO SCH (08:33)
[2017-08-31] MEDS: PYRIDOXINE 50 MG TAB PO SCH (08:35)
[2017-08-31] MEDS: CYANOCOBALAMIN 500 MCG TAB PO SCH (08:35)
--- NOTE | 2017-08-31 08:36 | PN ---
Date/Time of Note Date/Time of Note DATE: 08/31/17 TIME: 08:29 Assessment/Plan VTE Prophylaxis VTE Prophylaxis Intervention: SCD's, other Lines/Catheters IV [facility] Peripheral IV Urinary Cath still in place: Yes Reason Cath still needed: urinary retention Assessment/Plan Chief Complaint/Hosp Course 1. Urinary tract infection with bacteremia.E coli sensitive to ceftriaxone . 2. Episode of ventricular tachycardia now in sinus rhythm 3 type 2 diabetes mellitus 4 coronary artery disease with elevated troponins 5 she is now off pressors . She is still on a heparin drip.. She could be transferred to a telemetry floor if okay with cardiology. Problems: Subjective 24 Hr Interval Summary Free Text/Dictation She is in the intensive care unit. She is feeling much better. She is awake and alert. She has been eating. She feels much stronger. Constitutional: improved, no complaints Gastrointestinal: no complaints Genitourinary: no complaints Musculoskeletal: no complaints Skin: no complaints Neurologic: no complaints Exam/Review of Systems Vital Signs Vitals Vital Signs Date Time Temp Pulse Resp B/P Pulse Ox O2 Delivery O2 Flow Rate FiO2 08/31/17 07:30 98.8 70 08/31/17 06:00 19 114/55 97 Room Air 08/30/17 11:45 2.0 Intake and Output 08/30/17 08/30/17 08/31/17 15:00 23:00 07:00 Intake Total 1264.725 ml 1385.6 ml 492.0 ml Output Total 1450 ml 1250 ml 1650 ml Balance -185.275 ml 135.6 ml -1158.0 ml Exam Constitutional: alert, oriented, well developed Psych: nl mood/affect, no complaints Respiratory: clear to auscultation, normal air movement Cardiovascular: regular rate and rhythm Gastrointestinal: non-tender, soft Musculoskeletal: nl extremities to inspection Results Result Diagram: 08/31/17 03108/31/17 031 Results 24 hrs Laboratory Tests Test 08/30/17 09:14 08/30/17 09:40 08/30/17 13:04 08/30/17 13:42 Bedside Glucose 179 118 Lactic Acid Level 1.7 1.6 Creatine Kinase 151 Creatine Kinase Index 2.3 Creatinine Kinase MB (Mass) 3.42 H Troponin I 0.813 *H B-Type Natriuretic Peptide 89554 H Test 08/30/17 14:37 08/30/17 17:40 08/30/17 18:45 08/30/17 20:26 Activated Partial Thromboplast Time 84.8 *H Bedside Glucose 88 186 Creatine Kinase 133 Creatine Kinase Index 2.5 Creatinine Kinase MB (Mass) 3.32 H Troponin I 0.695 *H Test 08/30/17 21:08 08/31/17 00:41 08/31/17 00:42 08/31/17 03:10 Activated Partial Thromboplast Time 60.1 H 54.2 H Bedside Glucose 161 Creatine Kinase 101 Creatine Kinase Index 3.0 Creatinine Kinase MB (Mass) 2.98 H Troponin I 0.520 *H White Blood Count 10.7 Red Blood Count 3.78 L Hemoglobin 10.0 L Hematocrit 31.6 L Mean Corpuscular Volume 83.6 Mean Corpuscular Hemoglobin 26.5 L Mean Corpuscular Hemoglobin Concent 31.6 L Red Cell Distribution Width 16.2 H Platelet Count 148 Mean Platelet Volume 12.0 H Neutrophils % 69.3 Lymphocytes % 17.4 Monocytes % 11.6 H Eosinophils % 0.4 Basophils % 0.4 Nucleated Red Blood Cells % 0.0 Neutrophils # 7.4 Lymphocytes # 1.9 Monocytes # 1.2 H Eosinophils # 0.0 Basophils # 0.0 Nucleated Red Blood Cells # 0.0 Sodium Level 138 # Potassium Level 4.2 Chloride Level 109 # Carbon Dioxide Level 21 Anion Gap 12 Blood Urea Nitrogen 21 H Creatinine 1.08 H Glucose Level 110 # Calcium Level 8.1 L Triglycerides Level 212 H Cholesterol Level 81 L LDL Cholesterol, Calculated 16 HDL Cholesterol 23 L Cholesterol/HDL Ratio 3.5 Test 08/31/17 05:49 Bedside Glucose 105 Medications Medications Current Medications Lidocaine HCl/ Dextrose (Lidocaine 2 Gm/ D5W) 500 ml @ 15 mls/hr Q24H IV Last administered on 08/29/17 20:04; Admin Dose 15 MLS/HR; Start 08/29/17 at 20:30 Ondansetron HCl (Zofran Tab) 4 mg Q6H PRN PO NAUSEA AND/OR VOMITING Last administered on 08/30/17 23:53; Admin Dose 4 MG; Start 08/29/17 at 21:30 Acetaminophen (Tylenol Liquid) 650 mg Q6H PRN PO PAIN LEVEL 1-3 OR FEVER; Start 08/29/17 at 21:30 Insulin Aspart (Novolog Insulin Pen) NOVOLOG *MODERATE* ALGORI... Q4 SC Last administered on 08/31/17 00:44; Admin Dose 2 UNIT; Start 08/30/17 at 05:00 Miscellaneous Information 1 ea NOTE XX ; Start 08/30/17 at 01:15 Glucose (Glutose) 15 gm Q15M PRN PO DECREASED GLUCOSE; Start 08/30/17 at 01:15 Glucose (Glutose) 22.5 gm Q15M PRN PO DECREASED GLUCOSE; Start 08/30/17 at 01: 15 Dextrose (D50w Syringe) 25 ml Q15M PRN IV DECREASED GLUCOSE; Start 08/30/17 at 01:15 Dextrose (D50w Syringe) 50 ml Q15M PRN IV DECREASED GLUCOSE; Start 08/30/17 at 01:15 Glucagon (Glucagen) 1 mg Q15M PRN IM DECREASED GLUCOSE; Start 08/30/17 at 01: 15 Glucose 15 gm 15 gm Q15M PRN BUCCAL DECREASED GLUCOSE; Start 08/30/17 at 01:15 Norepinephrine/ Dextrose (Levophed/D5W) 500 ml @ 1.87 mls/hr TITRATE IV ; Start 08/30/17 at 07:00 Aspirin (Halfprin) 81 mg DAILY PO Last administered on 08/30/17 12:07; Admin Dose 81 MG; Start 08/30/17 at 09:00 Atorvastatin Calcium (Lipitor) 40 mg QHS PO Last administered on 08/30/17 20: 17; Admin Dose 40 MG; Start 08/30/17 at 21:00 Clopidogrel Bisulfate (plaVIX) 75 mg DAILY PO Last administered on 08/30/17 12:07; Admin Dose 75 MG; Start 08/30/17 at 09:00 Cyanocobalamin (Vitamin B12) 500 mcg DAILY PO Last administered on 08/30/17 10:11; Admin Dose 500 MCG; Start 08/30/17 at 09:00 Folic Acid (Folic Acid) 0.4 mg DAILY PO Last administered on 08/30/17 12:08; Admin Dose 0.4 MG; Start 08/30/17 at 09:00 Pyridoxine HCl (Vitamin B6) 100 mg DAILY PO Last administered on 08/30/17 12: 08; Admin Dose 100 MG; Start 08/30/17 at 09:00 Ranitidine HCl (Zantac) 300 mg HS PO Last administered on 08/30/17 20:17; Admin Dose 300 MG; Start 08/30/17 at 21:00 Amiodarone HCl 400 mg 400 mg BID PO Last administered on 08/30/17 16:03; Admin Dose 400 MG; Start 08/30/17 at 16:00 Sodium Chloride 1,000 ml @ 50 mls/hr Q20H IV Last administered on 08/30/17 20:16; Admin Dose 50 MLS/HR; Start 08/30/17 at 20:00 Ceftriaxone Sodium (Rocephin) 50 ml @ 100 mls/hr Q24H IVPB ; Start 08/31/17 at 08:00 CHRISTINE ABRAMS MD Aug 31, 2017 08:36
[2017-08-31] MEDS: ONDANSETRON 4 MG TAB PO PRN ×2 (09:01→20:55)
--- NOTE | 2017-08-31 12:04 | CONS ---
Date/Time of Note Date/Time of Note DATE: 08/31/17 TIME: 11:57 Assessment/Plan Assessment/Plan Chief Complaint/Hosp Course IMPRESSION: 1. Positive troponin in the setting of ventricular tachycardia, but no coronary artery disease. Assess for ongoing troponin elevation concerning for treatment of non-ST elevation myocardial infarction and possibly lending to ventricular tachycardia.-Very minimal uptrend and now has downtrended. NO CP. Patient with h/o 4 vessel cabg 1998 and 2 stents 2006 2. 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 NO recurrent VT on amio now po 3. Abnormal electrocardiogram with intraventricular conduction delay and secondary repolarization abnormalities and possible superimposed ischemic changes. 4. History of coronary artery disease, status post coronary artery bypass grafting, 1998. 5. History of percutaneous transluminal coronary angioplasty and stent placement in 2006. 6. Renal failure. 7. Septic shock on vasopressor support. 8. Hyponatremia-improved with IVF hydration 9. Renal failure-improving with IVF hydration 10. Bacteremia. 11. Urinary tract infection. 12. Anemia. Recc: -Tele -Continue amiodarone now PO -Continue asa/plavix/statin -Now off pressors and if remains stable will start low dose BB as tolerated -Continue abx's and f/u cx data -[facility] tenatively sunday depending upon ongoing stability/renal function/ bacteremia -Continue heparin for now with likley d/c if remains stable with downtrending cardiac enzymes Problems: Consultation Date/Type/Reason Admit Date/Time Aug 29, 2017 at 21:38 Initial Consult Date 08/30/17 Type of Consultation: cardiology Reason for Consultation VT/positive troponini Referring Provider: CHRISTINE ABRAMS MD Exam/Review of Systems Vital Signs Vitals Vital Signs Date Time Temp Pulse Resp B/P Pulse Ox O2 Delivery O2 Flow Rate FiO2 08/31/17 08:00 67 08/31/17 07:30 98.8 08/31/17 06:00 19 114/55 97 Room Air 08/30/17 11:45 2.0 Intake and Output 08/30/17 08/30/17 08/31/17 15:00 23:00 07:00 Intake Total 1264.725 ml 1385.6 ml 492.0 ml Output Total 1450 ml 1250 ml 1650 ml Balance -185.275 ml 135.6 ml -1158.0 ml Exam Review of Systems: CONSTITUTIONAL: No fevers, chills. PULMONARY: No sob CARDIOVASCULAR: No chest pain/palpitations GASTROINTESTINAL: No nausea/vomiting. GENITOURINARY: No hematuria/dysuria. MUSCULOSKELETAL: No myagias/arthalgias. PSYCHIATRIC: The patient denies depression. NEUROLOGIC: No weakness Constitutional: alert, oriented Head: normocephalic ENMT: mucosa pink and moist Neck: jvd (9 cm water), supple Respiratory: diminished breath sounds Cardiovascular: regular rate and rhythm Gastrointestinal: non-tender, soft Musculoskeletal: muscle tone (normal) Extremities: edema (none) Neurological: other (No focal deficits) Results Result Diagram: 08/31/17 0310 08/31/17 0310 Results 24 hrs Laboratory Tests Test 08/30/17 13:04 08/30/17 13:42 08/30/17 14:37 08/30/17 17:40 Bedside Glucose 118 88 Lactic Acid Level 1.6 Creatine Kinase 151 Creatine Kinase Index 2.3 Creatinine Kinase MB (Mass) 3.42 H Troponin I 0.813 *H B-Type Natriuretic Peptide 72870 H Activated Partial Thromboplast Time 84.8 *H Test 08/30/17 18:45 08/30/17 20:26 08/30/17 21:08 08/31/17 00:41 Creatine Kinase 133 Creatine Kinase Index 2.5 Creatinine Kinase MB (Mass) 3.32 H Troponin I 0.695 *H Bedside Glucose 186 161 Activated Partial Thromboplast Time 60.1 H Test 08/31/17 00:42 08/31/17 03:10 08/31/17 05:49 08/31/17 08:28 Creatine Kinase 101 Creatine Kinase Index 3.0 Creatinine Kinase MB (Mass) 2.98 H Troponin I 0.520 *H White Blood Count 10.7 Red Blood Count 3.78 L Hemoglobin 10.0 L Hematocrit 31.6 L Mean Corpuscular Volume 83.6 Mean Corpuscular Hemoglobin 26.5 L Mean Corpuscular Hemoglobin Concent 31.6 L Red Cell Distribution Width 16.2 H Platelet Count 148 Mean Platelet Volume 12.0 H Neutrophils % 69.3 Lymphocytes % 17.4 Monocytes % 11.6 H Eosinophils % 0.4 Basophils % 0.4 Nucleated Red Blood Cells % 0.0 Neutrophils # 7.4 Lymphocytes # 1.9 Monocytes # 1.2 H Eosinophils # 0.0 Basophils # 0.0 Nucleated Red Blood Cells # 0.0 Activated Partial Thromboplast Time 54.2 H Sodium Level 138 # Potassium Level 4.2 Chloride Level 109 # Carbon Dioxide Level 21 Anion Gap 12 Blood Urea Nitrogen 21 H Creatinine 1.08 H Glucose Level 110 # Calcium Level 8.1 L Triglycerides Level 212 H Cholesterol Level 81 L LDL Cholesterol, Calculated 16 HDL Cholesterol 23 L Cholesterol/HDL Ratio 3.5 Bedside Glucose 105 107 Test 08/31/17 10:01 Activated Partial Thromboplast Time 74.0 *H Medications Medications Current Medications Ondansetron HCl (Zofran Tab) 4 mg Q6H PRN PO NAUSEA AND/OR VOMITING Last administered on 08/31/17 09:01; Admin Dose 4 MG; Start 08/29/17 at 21:30 Acetaminophen (Tylenol Liquid) 650 mg Q6H PRN PO PAIN LEVEL 1-3 OR FEVER; Start 08/29/17 at 21:30 Insulin Aspart (Novolog Insulin Pen) NOVOLOG *MODERATE* ALGORI... Q4 SC Last administered on 08/31/17 00:44; Admin Dose 2 UNIT; Start 08/30/17 at 05:00 Miscellaneous Information 1 ea NOTE XX ; Start 08/30/17 at 01:15 Glucose (Glutose) 15 gm Q15M PRN PO DECREASED GLUCOSE; Start 08/30/17 at 01:15 Glucose (Glutose) 22.5 gm Q15M PRN PO DECREASED GLUCOSE; Start 08/30/17 at 01: 15 Dextrose (D50w Syringe) 25 ml Q15M PRN IV DECREASED GLUCOSE; Start 08/30/17 at 01:15 Dextrose (D50w Syringe) 50 ml Q15M PRN IV DECREASED GLUCOSE; Start 08/30/17 at 01:15 Glucagon (Glucagen) 1 mg Q15M PRN IM DECREASED GLUCOSE; Start 08/30/17 at 01: 15 Glucose 15 gm 15 gm Q15M PRN BUCCAL DECREASED GLUCOSE; Start 08/30/17 at 01:15 Norepinephrine/ Dextrose (Levophed/D5W) 500 ml @ 1.87 mls/hr TITRATE IV ; Start 08/30/17 at 07:00 Aspirin (Halfprin) 81 mg DAILY PO Last administered on 08/31/17 08:33; Admin Dose 81 MG; Start 08/30/17 at 09:00 Atorvastatin Calcium (Lipitor) 40 mg QHS PO Last administered on 08/30/17 20: 17; Admin Dose 40 MG; Start 08/30/17 at 21:00 Clopidogrel Bisulfate (plaVIX) 75 mg DAILY PO Last administered on 08/31/17 08 :33; Admin Dose 75 MG; Start 08/30/17 at 09:00 Cyanocobalamin (Vitamin B12) 500 mcg DAILY PO Last administered on 08/31/17 08 :35; Admin Dose 500 MCG; Start 08/30/17 at 09:00 Folic Acid (Folic Acid) 0.4 mg DAILY PO Last administered on 08/31/17 08:33; Admin Dose 0.4 MG; Start 08/30/17 at 09:00 Pyridoxine HCl (Vitamin B6) 100 mg DAILY PO Last administered on 08/31/17 08: 35; Admin Dose 100 MG; Start 08/30/17 at 09:00 Ranitidine HCl (Zantac) 300 mg HS PO Last administered on 08/30/17 20:17; Admin Dose 300 MG; Start 08/30/17 at 21:00 Amiodarone HCl 400 mg 400 mg BID PO Last administered on 08/31/17 08:33; Admin Dose 400 MG; Start 08/30/17 at 16:00 Ceftriaxone Sodium (Rocephin) 50 ml @ 100 mls/hr Q24H IVPB Last administered on 08/31/17 08:33; Admin Dose 100 MLS/HR; Start 08/31/17 at 08:00 MARCUS TOURE Aug 31, 2017 12:04
[2017-08-31] MEDS: METOPROLOL 25 MG TAB PO SCH ×2 (12:30→20:56)
--- NOTE | 2017-08-31 16:09 | RADRPT ---
Echocardiogram Report Patient Name: DARIEL KAUR Gender: Female Date: 1940 Study Date: 30-Aug-2017 Distribution Spec: [facility] Location: [address] Ref. Physician: BENY MEADE Quality: Adequate Procedures: Transthoracic echocardiogram with complete 2D, M-Mode, and doppler examination. Indications: Vtach. 2D/M Mode Doppler Measurement Value Normal Ranges Measurement Value Normal Ranges LVIDd 2D 4.0 3.5 - 5.6 cm AV Peak Mello 1.1 m/sec LVIDs 2D 2.9 2.1 - 4.1 cm AV Peak PG 4.0 mmHg FS 2D 26.3 % LVOT Peak Mello 1.0 m/sec LVPWd 2D 1.3 0.6 - 1.1 cm LVOT Peak PG 4.0 mmHg IVSd 2D 1.3 0.6 - 1.1 cm MV E Peak Mello 1.2 m/sec IVS/LVPW 2D 1.0 MV A Peak Mello 0.7 m/sec AoR Diam 2D 2.7 2.0 - 3.7 cm MV E/A 1.9 LA/Ao 2D 2 0 - 1 MV Decel Time 151 msec EDV 2D 61.6 cm3 MV E/A 1.9 ESV 2D 24.6 cm3 TR Peak Mello 2.2 m/sec LA Dimen 2D 4.3 2.3 - 4.0 cm TR Peak PG 20.0 mmHg RVSP 23.0 mmHg Findings Left Ventricle: Normal left ventricular cavity size. Mild concentric left ventricular hypertrophy. Mild left ventricular systolic dysfunction. Ejection fraction is visually estimated at 45 %. Abnormal Diastolic Function. These segments of the LV are hypokinetic inferoseptum mid segment, anteroseptum mid segment and inferoseptum basal segment. Right Ventricle: Normal right ventricular size. Normal right ventricular systolic function. Left Atrium: There is mild enlargement of left atrium. Right Atrium: The right atrium is normal in size. Mitral Valve: Mild mitral leaflet calcification. Mild mitral annular calcification. Mild to moderate mitral valve regurgitation. Aortic Valve: Normal appearance of the aortic valve. No significant aortic stenosis or insufficiency. Tricuspid Valve: Normal appearance of the tricuspid valve. Estimated peak PA systolic pressure 23 mmHg. There is mild tricuspid regurgitation. Pulmonic Valve: Pulmonic valve not well visualized. There is trace pulmonic regurgitation. Pericardium: Normal pericardium with no significant pericardial effusion. Aorta: Normal aortic root. IVC: Normal size and normal respiratory collapse consistent with normal right atrial pressure. Conclusions 1.Normal left ventricular cavity size. Mild concentric left ventricular hypertrophy. Mild left ventricular systolic dysfunction. Ejection fraction is visually estimated at 45 %. Abnormal Diastolic Function. These segments of the LV are hypokinetic inferoseptum mid segment, anteroseptum mid segment and inferoseptum basal segment. 2.There is mild enlargement of left atrium. 3.Mild mitral leaflet calcification. Mild mitral annular calcification. Mild to moderate mitral valve regurgitation. 4.Normal appearance of the tricuspid valve. Estimated peak PA systolic pressure 23 mmHg. There is mild tricuspid regurgitation. 5.Pulmonic valve not well visualized. There is trace pulmonic regurgitation. Electronically Signed By: Peña Downs 31-Aug-2017 16:08:49 -0800 Patient Name: DARIEL KAUR Study Date: 30-Aug-2017 [id number]
[2017-08-31] MEDS: RANITIDINE 150 MG TAB PO SCH (20:54)
[2017-08-31] MEDS: ATORVASTATIN 40 MG TAB PO SCH (20:54)
[2017-09-01] VITALS (12 sets, daily range): BP systolic 122–148; BP diastolic 59–84; PULSE 55–64; RESP 18–20
[2017-09-01] MEDS: HEPARIN 25000 UNITS/250 ML 250 ML IV SCH ×2 (00:34→09:30)
[2017-09-01] MEDS: INSULIN ASPART [NOVOLOG] 3 ML PEN SC SCH ×6 (01:59→22:30)
[2017-09-01] MEDS: ASPIRIN (EC) 81 MG TAB PO SCH (08:13)
[2017-09-01] MEDS: CYANOCOBALAMIN 500 MCG TAB PO SCH (08:14)
[2017-09-01] MEDS: PYRIDOXINE 50 MG TAB PO SCH (08:14)
[2017-09-01] MEDS: FOLIC ACID 0.4 MG TAB PO SCH (08:15)
[2017-09-01] MEDS: AMIODARONE 200 MG TAB PO SCH ×2 (08:15→22:30)
[2017-09-01] MEDS: METOPROLOL 25 MG TAB PO SCH ×2 (08:15→22:30)
[2017-09-01] MEDS: LEVOTHYROXINE 75 MCG TAB PO SCH (08:15)
[2017-09-01 08:26] LABS: BASOPHILS % 0.4 % (0.0-2.0); EOSINOPHILS # 0.1 10^3/ul (0.0-0.5); EOSINOPHILS % 0.7 % (0.0-7.0); HEMATOCRIT 33.9 % (37.0-47.0); HEMOGLOBIN 10.8 g/dl (12.0-16.0); LYMPHOCYTES # 1.7 10^3/ul (0.8-2.9); LYMPHOCYTES % 22.8 % (15.0-51.0); MEAN CORPUSCULAR HEMOGLOBIN 26.1 pg (29.0-33.0); MEAN CORPUSCULAR HGB CONC 31.9 g/dl (32.0-37.0); MEAN CORPUSCULAR VOLUME 81.9 fl (82.0-101.0); MEAN PLATELET VOLUME 11.8 fl (7.4-10.4); MONOCYTE # 0.9 10^3/ul (0.3-0.9); MONOCYTES % 12.4 % (0.0-11.0); NEUTROPHIL # 4.7 10^3/ul (1.6-7.5); NEUTROPHILS % 62.8 % (39.0-77.0); PLATELET COUNT 150 10^3/UL (140-415); RED BLOOD COUNT 4.14 10^6/ul (4.20-5.40); WHITE BLOOD COUNT 7.5 10^3/ul (4.8-10.8)
[2017-09-01 08:54] LABS: ALBUMIN 3.2 g/dl (3.3-4.9); ALBUMIN/GLOBULIN RATIO 0.94; BILIRUBIN,INDIRECT 0.3 mg/dl (0-1.1); BILIRUBIN,TOTAL 0.3 mg/dl (0.2-1.3); CALCIUM 8.9 mg/dl (8.4-10.2); CREATININE 1.11 mg/dl (0.44-1.00); POTASSIUM 4.2 mmol/L (3.5-5.1); TOTAL PROTEIN 6.6 g/dl (6.1-8.1)
--- NOTE | 2017-09-01 09:02 | CONS ---
Date/Time of Note Date/Time of Note DATE: 09/01/17 TIME: 08:59 Assessment/Plan Assessment/Plan Chief Complaint/Hosp Course 1) UTI with bacteremia due to e.coli initial look at urine is c/w e.coli pt had e.coli in the past few weeks and completed a course of amoxicillin for this one week ago she had some shaking chills 2 days ago and yesterday continue with cefepime at present till sensi's are known to cover more resistant forms of e.coli 08/31 - e.coli in urine and likely blood change to IV ceftriaxone (resistant to amp, cefazolin and bactrim) pt will need a 2 week course of antibiotics but it can be changed to po meds when she is ready for discharge 09/01 - pt anxious to leave to see at [facility] unable to change to levaquin due to drug interaction with amiodarone d/c ceftriaxone and start vantin at 400mg BID and continue thru 09/11/17 ok for d/c from ID perspective 2) ARF pt normally has creatinine around 1 will order renal u/s but likely this increase in creatinine is from the infection and sepsis 08/31 - renal u/s is WNL creatinine is back to baseline 3) DM pt states her sugars have been good recently 4) CAD with v-tach upon admission likely due to intervening infection and bacteremia as etiology Problems: Consultation Date/Type/Reason Admit Date/Time Aug 29, 2017 at 21:38 Initial Consult Date 08/30/17 Type of Consultation: ID Referring Provider: CHRISTINE ABRAMS MD 24 HR Interval Summary Free Text/Dictation pt has mild N, no V no SOB no D pt anxious to leave hospital to see her who is at [facility] Exam/Review of Systems Vital Signs Vitals Vital Signs Date Time Temp Pulse Resp B/P Pulse Ox O2 Delivery O2 Flow Rate FiO2 09/01/17 07:43 98.6 58 18 143/65 98 08/31/17 15:45 Room Air 08/30/17 11:45 2.0 Intake and Output 08/31/17 08/31/17 09/01/17 15:00 23:00 07:00 Intake Total 571.75 ml 271.75 ml 1520 ml Output Total 1075 ml 250 ml 2100 ml Balance -503.25 ml 21.75 ml -580 ml Exam Constitutional: alert, oriented Eyes: nl sclera ENMT: mucosa pink and moist Respiratory: clear to auscultation Cardiovascular: regular rate and rhythm Gastrointestinal: other (slight tenderness to RLQ), soft Results Result Diagram: 09/01/17 0728 09/01/17 0728 Results 24 hrs Laboratory Tests Test 08/31/17 10:01 08/31/17 12:29 08/31/17 16:46 08/31/17 17:07 Activated Partial Thromboplast Time 74.0 *H 67.0 H Bedside Glucose 132 189 Test 08/31/17 21:01 08/31/17 23:15 09/01/17 01:59 09/01/17 05:46 Bedside Glucose 154 161 126 Activated Partial Thromboplast Time 73.1 *H Test 09/01/17 07:28 White Blood Count 7.5 # Red Blood Count 4.14 L Hemoglobin 10.8 L Hematocrit 33.9 L Mean Corpuscular Volume 81.9 L Mean Corpuscular Hemoglobin 26.1 L Mean Corpuscular Hemoglobin Concent 31.9 L Red Cell Distribution Width 16.0 H Platelet Count 150 Mean Platelet Volume 11.8 H Neutrophils % 62.8 Lymphocytes % 22.8 Monocytes % 12.4 H Eosinophils % 0.7 Basophils % 0.4 Nucleated Red Blood Cells % 0.0 Neutrophils # 4.7 Lymphocytes # 1.7 Monocytes # 0.9 Eosinophils # 0.1 Basophils # 0.0 Nucleated Red Blood Cells # 0.0 Activated Partial Thromboplast Time 56.2 H Sodium Level 138 Potassium Level 4.2 Chloride Level 104 Carbon Dioxide Level 24 Anion Gap 14 Blood Urea Nitrogen 15 Creatinine 1.11 H Glucose Level 151 Calcium Level 8.9 Total Bilirubin 0.3 Direct Bilirubin 0.00 Indirect Bilirubin 0.3 Aspartate Amino Transf (AST/SGOT) 37 Alanine Aminotransferase (ALT/SGPT) 62 Alkaline Phosphatase 79 Total Protein 6.6 Albumin 3.2 L Globulin 3.40 H Albumin/Globulin Ratio 0.94 Medications Medications Current Medications Ondansetron HCl (Zofran Tab) 4 mg Q6H PRN PO NAUSEA AND/OR VOMITING Last administered on 08/31/17t 20:55; Admin Dose 4 MG; Start 08/29/17 at 21:30 Acetaminophen (Tylenol Liquid) 650 mg Q6H PRN PO PAIN LEVEL 1-3 OR FEVER; Start 08/29/17 at 21:30 Insulin Aspart (Novolog Insulin Pen) NOVOLOG *MODERATE* ALGORI... Q4 SC Last administered on 09/01/17 01:59; Admin Dose 2 UNIT; Start 08/30/17 at 05:00 Miscellaneous Information 1 ea NOTE XX ; Start 08/30/17 at 01:15 Glucose (Glutose) 15 gm Q15M PRN PO DECREASED GLUCOSE; Start 08/30/17 at 01:15 Glucose (Glutose) 22.5 gm Q15M PRN PO DECREASED GLUCOSE; Start 08/30/17 at 01: 15 Dextrose (D50w Syringe) 25 ml Q15M PRN IV DECREASED GLUCOSE; Start 08/30/17 at 01:15 Dextrose (D50w Syringe) 50 ml Q15M PRN IV DECREASED GLUCOSE; Start 08/30/17 at 01:15 Glucagon (Glucagen) 1 mg Q15M PRN IM DECREASED GLUCOSE; Start 08/30/17 at 01: 15 Glucose (Glutose) 15 gm Q15M PRN BUCCAL DECREASED GLUCOSE; Start 08/30/17 at 01:15 Aspirin (Halfprin) 81 mg DAILY PO Last administered on 09/01/17 08:13; Admin Dose 81 MG; Start 08/30/17 at 09:00 Atorvastatin Calcium (Lipitor) 40 mg QHS PO Last administered on 08/31/17 20: 54; Admin Dose 40 MG; Start 08/30/17 at 21:00 Clopidogrel Bisulfate (plaVIX) 75 mg DAILY PO Last administered on 08/31/17 08 :33; Admin Dose 75 MG; Start 08/30/17 at 09:00 Cyanocobalamin (Vitamin B12) 500 mcg DAILY PO Last administered on 09/01/17 08 :14; Admin Dose 500 MCG; Start 08/30/17 at 09:00 Folic Acid (Folic Acid) 0.4 mg DAILY PO Last administered on 09/01/17 08:15; Admin Dose 0.4 MG; Start 08/30/17 at 09:00 Pyridoxine HCl (Vitamin B6) 100 mg DAILY PO Last administered on 09/01/17 08: 14; Admin Dose 100 MG; Start 08/30/17 at 09:00 Ranitidine HCl (Zantac) 300 mg HS PO Last administered on 08/31/17 20:54; Admin Dose 300 MG; Start 08/30/17 at 21:00 Amiodarone HCl 400 mg 400 mg BID PO Last administered on 09/01/17 08:15; Admin Dose 400 MG; Start 08/30/17 at 16:00 Ceftriaxone Sodium (Rocephin) 50 ml @ 100 mls/hr Q24H IVPB Last administered on 08/31/17 08:33; Admin Dose 100 MLS/HR; Start 08/31/17 at 08:00 Metoprolol Tartrate (Lopressor) 12.5 mg BID PO Last administered on 08/31/17 20:56; Admin Dose 12.5 MG; Start 08/31/17 at 12:30 KAILASH FORD MD Sep 01, 2017 09:02
[2017-09-01] MEDS: CLOPIDOGREL 75 MG TAB PO SCH (09:37)
[2017-09-01] MEDS: CEFPODOXIME 200 MG TAB PO SCH ×2 (10:42→22:30)
--- NOTE | 2017-09-01 14:46 | CONS ---
Date/Time of Note Date/Time of Note DATE: 09/01/17 TIME: 14:40 Assessment/Plan Assessment/Plan Chief Complaint/Hosp Course IMPRESSION: 1. Positive troponin in the setting of ventricular tachycardia Assess for ongoing troponin elevation concerning for treatment of non-ST elevation myocardial infarction and possibly lending to ventricular tachycardia.-Very minimal uptrend and now has downtrended. NO CP. Patient with h/o 4 vessel cabg 1998 and 2 stents 2006 2. 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 NO recurrent VT on amio now po 3. Abnormal electrocardiogram with intraventricular conduction delay and secondary repolarization abnormalities and possible superimposed ischemic changes. 4. History of coronary artery disease, status post coronary artery bypass grafting, 1998. 5. History of percutaneous transluminal coronary angioplasty and stent placement in 2006. 6. Renal failure. 7. Septic shock on vasopressor support. 8. Hyponatremia-improved 9. Renal failure-overall improved s/p IVF hydration with some very mild renal insuff 10. Bacteremia. 11. Urinary tract infection. 12. Anemia. Recc: -Tele -Continue amiodarone now PO -Continue asa/plavix/statin -Continue low dose BB as tolerated only -Continue abx's and f/u cx data -[facility] tenatively sunday depending upon ongoing stability/renal function/ bacteremia and have spoken with Patient brother/patient as she is anxious to see her who is sick in hospital as well. 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 Patient states that at this time she is willing to remain in hospital to complete treatment and eval -Will d/c IV heparin but continue baseline asa/plavix Problems: Consultation Date/Type/Reason Admit Date/Time Aug 29, 2017 at 21:38 Initial Consult Date 08/30/17 Type of Consultation: cardiology Reason for Consultation VT Referring Provider: CHRISTINE ABRAMS MD Exam/Review of Systems Vital Signs Vitals Vital Signs Date Time Temp Pulse Resp B/P Pulse Ox O2 Delivery O2 Flow Rate FiO2 09/01/17 12:05 60 09/01/17 11:56 98.0 18 138/79 98 08/31/17 15:45 Room Air 08/30/17 11:45 2.0 Intake and Output 08/31/17 08/31/17 09/01/17 15:00 23:00 07:00 Intake Total 571.75 ml 271.75 ml 1520 ml Output Total 1075 ml 250 ml 2100 ml Balance -503.25 ml 21.75 ml -580 ml Exam Review of Systems: CONSTITUTIONAL: No fevers, chills. PULMONARY: No sob CARDIOVASCULAR: No chest pain/palpitations GASTROINTESTINAL: No nausea/vomiting. GENITOURINARY: No hematuria/dysuria. MUSCULOSKELETAL: No myagias/arthalgias. PSYCHIATRIC: The patient denies depression. NEUROLOGIC: No weakness Constitutional: alert, oriented Psych: no complaints Head: normocephalic ENMT: mucosa pink and moist Neck: jvd (8 cm water), supple Respiratory: clear to auscultation Cardiovascular: regular rate and rhythm Gastrointestinal: non-tender, soft Musculoskeletal: muscle tone (normal) Extremities: edema (none) Neurological: other (No focal deficits) Results Result Diagram: 09/01/1728 09/01/17727 Results 24 hrs Laboratory Tests Test 08/31/17 16:46 08/31/17 17:07 08/31/17 21:01 08/31/17 23:15 Bedside Glucose 189 154 Activated Partial Thromboplast Time 67.0 H 73.1 *H Test 09/01/17 01:59 09/01/17 05:46 09/01/17 07:28 09/01/17 09:28 Bedside Glucose 161 126 238 H White Blood Count 7.5 # Red Blood Count 4.14 L Hemoglobin 10.8 L Hematocrit 33.9 L Mean Corpuscular Volume 81.9 L Mean Corpuscular Hemoglobin 26.1 L Mean Corpuscular Hemoglobin Concent 31.9 L Red Cell Distribution Width 16.0 H Platelet Count 150 Mean Platelet Volume 11.8 H Neutrophils % 62.8 Lymphocytes % 22.8 Monocytes % 12.4 H Eosinophils % 0.7 Basophils % 0.4 Nucleated Red Blood Cells % 0.0 Neutrophils # 4.7 Lymphocytes # 1.7 Monocytes # 0.9 Eosinophils # 0.1 Basophils # 0.0 Nucleated Red Blood Cells # 0.0 Activated Partial Thromboplast Time 56.2 H Sodium Level 138 Potassium Level 4.2 Chloride Level 104 Carbon Dioxide Level 24 Anion Gap 14 Blood Urea Nitrogen 15 Creatinine 1.11 H Glucose Level 151 Calcium Level 8.9 Total Bilirubin 0.3 Direct Bilirubin 0.00 Indirect Bilirubin 0.3 Aspartate Amino Transf (AST/SGOT) 37 Alanine Aminotransferase (ALT/SGPT) 62 Alkaline Phosphatase 79 Total Protein 6.6 Albumin 3.2 L Globulin 3.40 H Albumin/Globulin Ratio 0.94 Test 09/01/17 12:59 Bedside Glucose 153 Medications Medications Current Medications Ondansetron HCl (Zofran Tab) 4 mg Q6H PRN PO NAUSEA AND/OR VOMITING Last administered on 08/31/17 20:55; Admin Dose 4 MG; Start 08/29/17 at 21:30 Acetaminophen (Tylenol Liquid) 650 mg Q6H PRN PO PAIN LEVEL 1-3 OR FEVER; Start 08/29/17 at 21:30 Insulin Aspart (Novolog Insulin Pen) NOVOLOG *MODERATE* ALGORI... Q4 SC Last administered on 09/01/17 13:05; Admin Dose 2 UNIT; Start 08/30/17 at 05:00 Miscellaneous Information 1 ea NOTE XX ; Start 08/30/17 at 01:15 Glucose (Glutose) 15 gm Q15M PRN PO DECREASED GLUCOSE; Start 08/30/17 at 01:15 Glucose (Glutose) 22.5 gm Q15M PRN PO DECREASED GLUCOSE; Start 08/30/17 at 01: 15 Dextrose (D50w Syringe) 25 ml Q15M PRN IV DECREASED GLUCOSE; Start 08/30/17 at 01:15 Dextrose (D50w Syringe) 50 ml Q15M PRN IV DECREASED GLUCOSE; Start 08/30/17 at 01:15 Glucagon (Glucagen) 1 mg Q15M PRN IM DECREASED GLUCOSE; Start 08/30/17 at 01: 15 Glucose (Glutose) 15 gm Q15M PRN BUCCAL DECREASED GLUCOSE; Start 08/30/17 at 01:15 Aspirin (Halfprin) 81 mg DAILY PO Last administered on 09/01/17 08:13; Admin Dose 81 MG; Start 08/30/17 at 09:00 Atorvastatin Calcium (Lipitor) 40 mg QHS PO Last administered on 08/31/17 20: 54; Admin Dose 40 MG; Start 08/30/17 at 21:00 Clopidogrel Bisulfate (plaVIX) 75 mg DAILY PO Last administered on 09/01/17 09 :37; Admin Dose 75 MG; Start 08/30/17 at 09:00 Cyanocobalamin (Vitamin B12) 500 mcg DAILY PO Last administered on 09/01/17 08 :14; Admin Dose 500 MCG; Start 08/30/17 at 09:00 Folic Acid (Folic Acid) 0.4 mg DAILY PO Last administered on 09/01/17 08:15; Admin Dose 0.4 MG; Start 08/30/17 at 09:00 Pyridoxine HCl (Vitamin B6) 100 mg DAILY PO Last administered on 09/01/17 08: 14; Admin Dose 100 MG; Start 08/30/17 at 09:00 Ranitidine HCl (Zantac) 300 mg HS PO Last administered on 08/31/17 20:54; Admin Dose 300 MG; Start 08/30/17 at 21:00 Amiodarone HCl (Cordarone) 400 mg BID PO Last administered on 09/01/17 08:15; Admin Dose 400 MG; Start 08/30/17 at 16:00 Metoprolol Tartrate (Lopressor) 12.5 mg BID PO Last administered on 08/31/17 20:56; Admin Dose 12.5 MG; Start 08/31/17 at 12:30 Cefpodoxime Proxetil (Vantin) 400 mg BID PO Last administered on 09/01/17 10: 42; Admin Dose 400 MG; Start 09/01/17 at 10:00 MARCUS TOURE Sep 01, 2017 14:46
--- NOTE | 2017-09-01 15:00 | PN ---
Date/Time of Note Date/Time of Note DATE: 09/01/17 TIME: 14:56 Assessment/Plan VTE Prophylaxis VTE Prophylaxis Intervention: SCD's Lines/Catheters IV Catheter Type (from Nrsg): Saline Lock Assessment/Plan Assessment/Plan 1. E Coli UTI /Bacteremia. improved. cultures susceptible to PO. - per ID, transitioned to PO Vantin until 09/21 - stable, afebrile 2. Episode of ventricular tachycardia now in sinus rhythm. - stable on PO amiodarone 3 type 2 diabetes mellitus 4 coronary artery disease with elevated troponins - cont ASA/Plavix/BB - d/c heparin drip - given hx CAD and CABG, plans for LHC on Sunday. Patient is wiling to stay in the hospital Subjective 24 Hr Interval Summary Free Text/Dictation Feeling better, want to ambulate and have gallego removed. 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 and wants to leave the hospital to be with him Constitutional: improved Eyes: no complaints ENT: no complaints Respiratory: no complaints Cardiovascular: no complaints Exam/Review of Systems Vital Signs Vitals Vital Signs Date Time Temp Pulse Resp B/P Pulse Ox O2 Delivery O2 Flow Rate FiO2 09/01/17 12:05 60 09/01/17 11:56 98.0 18 138/79 98 08/31/17 15:45 Room Air 08/30/17 11:45 2.0 Intake and Output 08/31/17 08/31/17 09/01/17 15:00 23:00 07:00 Intake Total 571.75 ml 271.75 ml 1520 ml Output Total 1075 ml 250 ml 2100 ml Balance -503.25 ml 21.75 ml -580 ml Exam Respiratory: clear to auscultation, normal air movement Cardiovascular: nl pulses, regular rate and rhythm Gastrointestinal: nl liver, spleen, non-tender, soft Results Result Diagram: 09/01/17 0728 09/01/1728 Results 24 hrs Laboratory Tests Test 08/31/17 16:46 08/31/17 17:07 08/31/17 21:01 08/31/17 23:15 Bedside Glucose 189 154 Activated Partial Thromboplast Time 67.0 H 73.1 *H Test 09/01/17 01:59 09/01/17 05:46 09/01/17 07:28 09/01/17 09:28 Bedside Glucose 161 126 238 H White Blood Count 7.5 # Red Blood Count 4.14 L Hemoglobin 10.8 L Hematocrit 33.9 L Mean Corpuscular Volume 81.9 L Mean Corpuscular Hemoglobin 26.1 L Mean Corpuscular Hemoglobin Concent 31.9 L Red Cell Distribution Width 16.0 H Platelet Count 150 Mean Platelet Volume 11.8 H Neutrophils % 62.8 Lymphocytes % 22.8 Monocytes % 12.4 H Eosinophils % 0.7 Basophils % 0.4 Nucleated Red Blood Cells % 0.0 Neutrophils # 4.7 Lymphocytes # 1.7 Monocytes # 0.9 Eosinophils # 0.1 Basophils # 0.0 Nucleated Red Blood Cells # 0.0 Activated Partial Thromboplast Time 56.2 H Sodium Level 138 Potassium Level 4.2 Chloride Level 104 Carbon Dioxide Level 24 Anion Gap 14 Blood Urea Nitrogen 15 Creatinine 1.11 H Glucose Level 151 Calcium Level 8.9 Total Bilirubin 0.3 Direct Bilirubin 0.00 Indirect Bilirubin 0.3 Aspartate Amino Transf (AST/SGOT) 37 Alanine Aminotransferase (ALT/SGPT) 62 Alkaline Phosphatase 79 Total Protein 6.6 Albumin 3.2 L Globulin 3.40 H Albumin/Globulin Ratio 0.94 Test 09/01/17 12:59 Bedside Glucose 153 Medications Medications Current Medications Ondansetron HCl (Zofran Tab) 4 mg Q6H PRN PO NAUSEA AND/OR VOMITING Last administered on 08/31/17 20:55; Admin Dose 4 MG; Start 08/29/17 at 21:30 Acetaminophen (Tylenol Liquid) 650 mg Q6H PRN PO PAIN LEVEL 1-3 OR FEVER; Start 08/29/17 at 21:30 Insulin Aspart (Novolog Insulin Pen) NOVOLOG *MODERATE* ALGORI... Q4 SC Last administered on 09/01/17 13:05; Admin Dose 2 UNIT; Start 08/30/17 at 05:00 Miscellaneous Information 1 ea NOTE XX ; Start 08/30/17 at 01:15 Glucose (Glutose) 15 gm Q15M PRN PO DECREASED GLUCOSE; Start 08/30/17 at 01:15 Glucose (Glutose) 22.5 gm Q15M PRN PO DECREASED GLUCOSE; Start 08/30/17 at 01: 15 Dextrose (D50w Syringe) 25 ml Q15M PRN IV DECREASED GLUCOSE; Start 08/30/17 at 01:15 Dextrose (D50w Syringe) 50 ml Q15M PRN IV DECREASED GLUCOSE; Start 08/30/17 at 01:15 Glucagon (Glucagen) 1 mg Q15M PRN IM DECREASED GLUCOSE; Start 08/30/17 at 01: 15 Glucose (Glutose) 15 gm Q15M PRN BUCCAL DECREASED GLUCOSE; Start 08/30/17 at 01:15 Aspirin (Halfprin) 81 mg DAILY PO Last administered on 09/01/17 08:13; Admin Dose 81 MG; Start 08/30/17 at 09:00 Atorvastatin Calcium (Lipitor) 40 mg QHS PO Last administered on 08/31/17 20: 54; Admin Dose 40 MG; Start 08/30/17 at 21:00 Clopidogrel Bisulfate (plaVIX) 75 mg DAILY PO Last administered on 09/01/17 09 :37; Admin Dose 75 MG; Start 08/30/17 at 09:00 Cyanocobalamin (Vitamin B12) 500 mcg DAILY PO Last administered on 09/01/17 08 :14; Admin Dose 500 MCG; Start 08/30/17 at 09:00 Folic Acid (Folic Acid) 0.4 mg DAILY PO Last administered on 09/01/17 08:15; Admin Dose 0.4 MG; Start 08/30/17 at 09:00 Pyridoxine HCl (Vitamin B6) 100 mg DAILY PO Last administered on 09/01/17 08: 14; Admin Dose 100 MG; Start 08/30/17 at 09:00 Ranitidine HCl (Zantac) 300 mg HS PO Last administered on 08/31/17 20:54; Admin Dose 300 MG; Start 08/30/17 at 21:00 Amiodarone HCl (Cordarone) 400 mg BID PO Last administered on 09/01/17 08:15; Admin Dose 400 MG; Start 08/30/17 at 16:00 Metoprolol Tartrate (Lopressor) 12.5 mg BID PO Last administered on 08/31/17 20:56; Admin Dose 12.5 MG; Start 08/31/17 at 12:30 Cefpodoxime Proxetil (Vantin) 400 mg BID PO Last administered on 09/01/17 10: 42; Admin Dose 400 MG; Start 09/01/17 at 10:00 TIM SCHAFER MD Sep 01, 2017 15:00
[2017-09-01] MEDS: ATORVASTATIN 40 MG TAB PO SCH (22:30)
[2017-09-01] MEDS: RANITIDINE 150 MG TAB PO SCH (22:30)
[2017-09-02] VITALS (12 sets, daily range): BP systolic 113–161; BP diastolic 54–69; PULSE 51–67; RESP 17–20
[2017-09-02] MEDS: INSULIN ASPART [NOVOLOG] 3 ML PEN SC SCH ×6 (01:00→21:16)
[2017-09-02] MEDS: LEVOTHYROXINE 75 MCG TAB PO SCH (06:07)
[2017-09-02] MEDS: FOLIC ACID 0.4 MG TAB PO SCH (08:20)
[2017-09-02] MEDS: AMIODARONE 200 MG TAB PO SCH ×2 (08:20→21:08)
[2017-09-02] MEDS: PYRIDOXINE 50 MG TAB PO SCH (08:20)
[2017-09-02] MEDS: ASPIRIN (EC) 81 MG TAB PO SCH (08:20)
[2017-09-02] MEDS: CLOPIDOGREL 75 MG TAB PO SCH (08:20)
[2017-09-02] MEDS: CYANOCOBALAMIN 500 MCG TAB PO SCH (08:20)
[2017-09-02] MEDS: METOPROLOL 25 MG TAB PO SCH ×2 (08:24→21:00)
--- NOTE | 2017-09-02 08:49 | PN ---
Date/Time of Note Date/Time of Note DATE: 09/02/17 TIME: 08:47 Assessment/Plan VTE Prophylaxis VTE Prophylaxis Intervention: SCD's Lines/Catheters IV Catheter Type (from Nrsg): Saline Lock Assessment/Plan Assessment/Plan 1. E Coli UTI /Bacteremia. improved. cultures susceptible to PO. - per ID, transitioned to PO Vantin until 09/21 - stable, afebrile 2. Episode of ventricular tachycardia now in sinus rhythm. - stable on PO amiodarone 3 type 2 diabetes mellitus - cont ISS - back to PO meds on discharge 4 coronary artery disease with elevated troponins - cont ASA/Plavix/BB - d/liseth heparin drip - given hx CAD and CABG, plans for LHC on Sunday. Patient is willing to stay in the hospital despite her 's end stage illness. Subjective 24 Hr Interval Summary Free Text/Dictation Feeling ok. Having some chills and sweats occasionally. No hypoglycemia overnight. Afebrile. Was able to skype with her yesterday, who is not doing well. She is considering putting him on hospice. Ok with staying in the hospital for LHC tomorrow. Respiratory: no complaints Cardiovascular: no complaints Gastrointestinal: no complaints Genitourinary: no complaints Exam/Review of Systems Vital Signs Vitals Vital Signs Date Time Temp Pulse Resp B/P Pulse Ox O2 Delivery O2 Flow Rate FiO2 09/02/17 08:03 97.8 58 20 113/54 92 08/31/17 15:45 Room Air 08/30/17 11:45 2.0 Intake and Output 09/01/17 09/01/17 09/02/17 15:00 23:00 07:00 Intake Total 700 ml Output Total 1000 ml Balance -300 ml Exam Respiratory: clear to auscultation, normal air movement Cardiovascular: nl pulses, regular rate and rhythm Gastrointestinal: nl liver, spleen, non-tender, soft Results Result Diagram: 09/01/17 0728 09/01/17 0728 Results 24 hrs Laboratory Tests Test 09/01/17 09:28 09/01/17 12:59 09/01/17 17:15 09/01/17 17:22 Bedside Glucose 238 H 153 139 Activated Partial Thromboplast Time 36.5 H Test 09/01/17 21:48 09/02/17 01:35 09/02/17 05:59 09/02/17 08:16 Bedside Glucose 203 128 153 157 Medications Medications Current Medications Ondansetron HCl (Zofran Tab) 4 mg Q6H PRN PO NAUSEA AND/OR VOMITING Last administered on 08/31/17 20:55; Admin Dose 4 MG; Start 08/29/17 at 21:30 Acetaminophen (Tylenol Liquid) 650 mg Q6H PRN PO PAIN LEVEL 1-3 OR FEVER; Start 08/29/17 at 21:30 Insulin Aspart (Novolog Insulin Pen) NOVOLOG *MODERATE* ALGORI... Q4 SC Last administered on 09/02/17 08:32; Admin Dose 2 UNIT; Start 08/30/17 at 05:00 Miscellaneous Information 1 ea NOTE XX ; Start 08/30/17 at 01:15 Glucose (Glutose) 15 gm Q15M PRN PO DECREASED GLUCOSE; Start 08/30/17 at 01:15 Glucose (Glutose) 22.5 gm Q15M PRN PO DECREASED GLUCOSE; Start 08/30/17 at 01: 15 Dextrose (D50w Syringe) 25 ml Q15M PRN IV DECREASED GLUCOSE; Start 08/30/17 at 01:15 Dextrose (D50w Syringe) 50 ml Q15M PRN IV DECREASED GLUCOSE; Start 08/30/17 at 01:15 Glucagon (Glucagen) 1 mg Q15M PRN IM DECREASED GLUCOSE; Start 08/30/17 at 01: 15 Glucose (Glutose) 15 gm Q15M PRN BUCCAL DECREASED GLUCOSE; Start 08/30/17 at 01:15 Aspirin (Halfprin) 81 mg DAILY PO Last administered on 09/02/17 08:20; Admin Dose 81 MG; Start 08/30/17 at 09:00 Atorvastatin Calcium (Lipitor) 40 mg QHS PO Last administered on 09/01/17 22: 30; Admin Dose 40 MG; Start 08/30/17 at 21:00 Clopidogrel Bisulfate (plaVIX) 75 mg DAILY PO Last administered on 09/02/17 08 :20; Admin Dose 75 MG; Start 08/30/17 at 09:00 Cyanocobalamin (Vitamin B12) 500 mcg DAILY PO Last administered on 09/02/17 08 :20; Admin Dose 500 MCG; Start 08/30/17 at 09:00 Folic Acid (Folic Acid) 0.4 mg DAILY PO Last administered on 09/02/17 08:20; Admin Dose 0.4 MG; Start 08/30/17 at 09:00 Pyridoxine HCl (Vitamin B6) 100 mg DAILY PO Last administered on 09/02/17 08: 20; Admin Dose 100 MG; Start 08/30/17 at 09:00 Ranitidine HCl (Zantac) 300 mg HS PO Last administered on 09/01/17 22:30; Admin Dose 300 MG; Start 08/30/17 at 21:00 Amiodarone HCl (Cordarone) 400 mg BID PO Last administered on 09/02/17 08:20; Admin Dose 400 MG; Start 08/30/17 at 16:00 Metoprolol Tartrate (Lopressor) 12.5 mg BID PO Last administered on 08/31/17 20:56; Admin Dose 12.5 MG; Start 08/31/17 at 12:30 Cefpodoxime Proxetil (Vantin) 400 mg BID PO Last administered on 09/01/17 22: 30; Admin Dose 400 MG; Start 09/01/17 at 10:00 TIM SCHAFER MD Sep 02, 2017 08:49
[2017-09-02] MEDS: CEFPODOXIME 200 MG TAB PO SCH ×2 (09:00→21:00)
--- NOTE | 2017-09-02 14:28 | CONS ---
Date/Time of Note Date/Time of Note DATE: 09/02/17 TIME: 14:25 Assessment/Plan Assessment/Plan Chief Complaint/Hosp Course IMPRESSION: 1. Positive troponin in the setting of ventricular tachycardia Assess for ongoing troponin elevation concerning for treatment of non-ST elevation myocardial infarction and possibly lending to ventricular tachycardia.-Very minimal uptrend and now has downtrended. NO CP. Patient with h/o 4 vessel cabg 1998 and 2 stents 2006 2. 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 NO recurrent VT on amio now po 3. Abnormal electrocardiogram with intraventricular conduction delay and secondary repolarization abnormalities and possible superimposed ischemic changes. 4. History of coronary artery disease, status post coronary artery bypass grafting, 1998. 5. History of percutaneous transluminal coronary angioplasty and stent placement in 2006. 6. Renal failure. 7. Septic shock on vasopressor support. 8. Hyponatremia-improved 9. Renal failure-overall improved s/p IVF hydration with some very mild renal insuff 10. Bacteremia. 11. Urinary tract infection. 12. Anemia. Recc: -Tele -Continue amiodarone now PO BID and tomorrow will decrease to daily -Continue asa/plavix/statin -Continue low dose BB as tolerated only -Continue abx's and f/u cx data -[facility] tomorrow and have spoken with Patient brother/patient as she is anxious to see her who is sick in hospital as well. Will attempt to move cath up earlier in day on sunday and possibly if no need for stent and no further VT might be able to get patient d/c'd sooner from hospital and allow her primary medical malpractice paralegal, to see decide upon definitive need for ICD given ongoing treatment of infection. Patient states that at this time she is willing to remain in hospital to complete treatment and eval -Continue asa/plavix Problems: Consultation Date/Type/Reason Admit Date/Time Aug 29, 2017 at 21:38 Initial Consult Date 08/30/17 Type of Consultation: cardiology Reason for Consultation positive troponin Referring Provider: CHRISTINE ABRAMS MD Exam/Review of Systems Vital Signs Vitals Vital Signs Date Time Temp Pulse Resp B/P Pulse Ox O2 Delivery O2 Flow Rate FiO2 09/02/17 12:30 65 09/02/17 11:20 97.8 17 151/68 95 08/31/17 15:45 Room Air 11/30/17 11:45 2.0 Intake and Output 09/01/17 09/01/17 09/02/17 15:00 23:00 07:00 Intake Total 700 ml Output Total 1000 ml Balance -300 ml Exam Review of Systems: CONSTITUTIONAL: No fevers, chills. PULMONARY: No sob CARDIOVASCULAR: No chest pain/palpitations GASTROINTESTINAL: No nausea/vomiting. GENITOURINARY: No hematuria/dysuria. MUSCULOSKELETAL: No myagias/arthalgias. PSYCHIATRIC: The patient denies depression. NEUROLOGIC: No weakness Constitutional: alert, oriented Psych: no complaints Head: normocephalic ENMT: mucosa pink and moist Neck: jvd (8 cm water), supple Respiratory: clear to auscultation Cardiovascular: regular rate and rhythm Gastrointestinal: non-tender, soft Musculoskeletal: muscle tone (normal) Extremities: edema (none) Neurological: other (NO focal deficits) Results Result Diagram: 09/01/17 0728 09/01/17 0728 Results 24 hrs Laboratory Tests Test 09/01/17 17:15 09/01/17 17:22 09/01/17 21:48 09/02/17 01:35 Activated Partial Thromboplast Time 36.5 H Bedside Glucose 139 203 128 Test 09/02/17 05:59 09/02/17 08:16 09/02/17 12:30 Bedside Glucose 153 157 180 Medications Medications Current Medications Ondansetron HCl (Zofran Tab) 4 mg Q6H PRN PO NAUSEA AND/OR VOMITING Last administered on 08/31/17 20:55; Admin Dose 4 MG; Start 08/29/17 at 21:30 Acetaminophen (Tylenol Liquid) 650 mg Q6H PRN PO PAIN LEVEL 1-3 OR FEVER; Start 08/29/17 at 21:30 Insulin Aspart (Novolog Insulin Pen) NOVOLOG *MODERATE* ALGORI... Q4 SC Last administered on 09/02/17 12:36; Admin Dose 2 UNIT; Start 08/30/17 at 05:00 Miscellaneous Information 1 ea NOTE XX ; Start 08/30/17 at 01:15 Glucose (Glutose) 15 gm Q15M PRN PO DECREASED GLUCOSE; Start 08/30/17 at 01:15 Glucose (Glutose) 22.5 gm Q15M PRN PO DECREASED GLUCOSE; Start 08/30/17 at 01: 15 Dextrose (D50w Syringe) 25 ml Q15M PRN IV DECREASED GLUCOSE; Start 08/30/17 at 01:15 Dextrose (D50w Syringe) 50 ml Q15M PRN IV DECREASED GLUCOSE; Start 08/30/17 at 01:15 Glucagon (Glucagen) 1 mg Q15M PRN IM DECREASED GLUCOSE; Start 08/30/17 at 01: 15 Glucose (Glutose) 15 gm Q15M PRN BUCCAL DECREASED GLUCOSE; Start 08/30/17 at 01:15 Aspirin (Halfprin) 81 mg DAILY PO Last administered on 09/02/17 08:20; Admin Dose 81 MG; Start 08/30/17 at 09:00 Atorvastatin Calcium (Lipitor) 40 mg QHS PO Last administered on 09/01/17 22: 30; Admin Dose 40 MG; Start 08/30/17 at 21:00 Clopidogrel Bisulfate (plaVIX) 75 mg DAILY PO Last administered on 09/02/17 08 :20; Admin Dose 75 MG; Start 08/30/17 at 09:00 Cyanocobalamin (Vitamin B12) 500 mcg DAILY PO Last administered on 09/02/17 08 :20; Admin Dose 500 MCG; Start 08/30/17 at 09:00 Folic Acid (Folic Acid) 0.4 mg DAILY PO Last administered on 09/02/17 08:20; Admin Dose 0.4 MG; Start 08/30/17 at 09:00 Pyridoxine HCl (Vitamin B6) 100 mg DAILY PO Last administered on 09/02/17 08: 20; Admin Dose 100 MG; Start 08/30/17 at 09:00 Ranitidine HCl (Zantac) 300 mg HS PO Last administered on 09/01/17 22:30; Admin Dose 300 MG; Start 08/30/17 at 21:00 Amiodarone HCl (Cordarone) 400 mg BID PO Last administered on 09/02/17 08:20; Admin Dose 400 MG; Start 08/30/17 at 16:00 Metoprolol Tartrate (Lopressor) 12.5 mg BID PO Last administered on 08/31/17 20:56; Admin Dose 12.5 MG; Start 08/31/17 at 12:30 Cefpodoxime Proxetil (Vantin) 400 mg BID PO Last administered on 09/01/17t 22: 30; Admin Dose 400 MG; Start 09/01/17 at 10:00 MARCUS TOURE Sep 02, 2017 14:28
[2017-09-02] MEDS ORDERED: DIPHENHYDRAMINE 50 MG CAP PO SCH (14:30)
[2017-09-02] MEDS ORDERED: DIAZEPAM 5 MG TAB PO SCH (14:30)
[2017-09-02] MEDS: ATORVASTATIN 40 MG TAB PO SCH (21:07)
[2017-09-02] MEDS: RANITIDINE 150 MG TAB PO SCH (21:07)
[2017-09-03] VITALS (25 sets, daily range): BP systolic 97–175; BP diastolic 46–79; PULSE 50–62; RESP 14–28
[2017-09-03] MEDS: INSULIN ASPART [NOVOLOG] 3 ML PEN SC SCH ×5 (01:00→17:18)
[2017-09-03] MEDS: LEVOTHYROXINE 75 MCG TAB PO SCH (06:00)
[2017-09-03 06:07] LABS: BASOPHILS % 0.4 % (0.0-2.0); EOSINOPHILS # 0.2 10^3/ul (0.0-0.5); EOSINOPHILS % 1.5 % (0.0-7.0); HEMATOCRIT 33.1 % (37.0-47.0); HEMOGLOBIN 10.6 g/dl (12.0-16.0); LYMPHOCYTES # 2.3 10^3/ul (0.8-2.9); LYMPHOCYTES % 23.5 % (15.0-51.0); MEAN CORPUSCULAR HEMOGLOBIN 26.2 pg (29.0-33.0); MEAN CORPUSCULAR VOLUME 81.9 fl (82.0-101.0); MEAN PLATELET VOLUME 11.6 fl (7.4-10.4); MONOCYTE # 0.8 10^3/ul (0.3-0.9); MONOCYTES % 8.6 % (0.0-11.0); NEUTROPHIL # 6.3 10^3/ul (1.6-7.5); PLATELET COUNT 191 10^3/UL (140-415); RED BLOOD COUNT 4.04 10^6/ul (4.20-5.40); RED CELL DISTRIBUTION WIDTH 15.9 % (11.5-14.5); WHITE BLOOD COUNT 9.8 10^3/ul (4.8-10.8)
[2017-09-03 06:30] LABS: INR 0.93; PROTIME 12.6 Sec (11.9-14.9)
[2017-09-03 06:37] LABS: CALCIUM 9.5 mg/dl (8.4-10.2); CREATININE 1.05 mg/dl (0.44-1.00); POTASSIUM 4.9 mmol/L (3.5-5.1)
--- NOTE | 2017-09-03 07:41 | CONS ---
Date/Time of Note Date/Time of Note DATE: 09/03/17 TIME: 07:40 Assessment/Plan Assessment/Plan Chief Complaint/Hosp Course 1) UTI with bacteremia due to e.coli initial look at urine is c/w e.coli pt had e.coli in the past few weeks and completed a course of amoxicillin for this one week ago she had some shaking chills 2 days ago and yesterday continue with cefepime at present till sensi's are known to cover more resistant forms of e.coli 08/31 - e.coli in urine and likely blood change to IV ceftriaxone (resistant to amp, cefazolin and bactrim) pt will need a 2 week course of antibiotics but it can be changed to po meds when she is ready for discharge 09/01 - pt anxious to leave to see at [facility] unable to change to levaquin due to drug interaction with amiodarone d/c ceftriaxone and start vantin at 400mg BID and continue thru 09/11/17 ok for d/c from ID perspective 09/03 - doing well, tolerating oral vantin and WBC remains WNL 2) ARF pt normally has creatinine around 1 will order renal u/s but likely this increase in creatinine is from the infection and sepsis 08/31 - renal u/s is WNL creatinine is back to baseline 3) DM pt states her sugars have been good recently 4) CAD with v-tach upon admission likely due to intervening infection and bacteremia as etiology 09/03 - pt to get cardiac cath today Problems: Consultation Date/Type/Reason Admit Date/Time Aug 29, 2017 at 21:38 Initial Consult Date 08/30/17 Type of Consultation: ID Referring Provider: CHRISTINE ABRAMS MD 24 HR Interval Summary Free Text/Dictation pt is doing ok no N, V, D no BM for 5 days no SOB, CP, dysuria Exam/Review of Systems Vital Signs Vitals Vital Signs Date Time Temp Pulse Resp B/P Pulse Ox O2 Delivery O2 Flow Rate FiO2 09/03/17 07:15 97.8 64 20 175/71 98 08/31/17 15:45 Room Air 08/30/17 11:45 2.0 Intake and Output 09/02/17 09/02/17 09/03/17 14:59 22:59 06:59 Intake Total 550 ml 1100 ml Balance 550 ml 1100 ml Exam Constitutional: alert, oriented Eyes: nl sclera Respiratory: clear to auscultation Cardiovascular: regular rate and rhythm Gastrointestinal: non-tender, soft Results Result Diagram: 09/03/17 0540 09/03/17 0540 Results 24 hrs Laboratory Tests Test 09/02/17 08:16 09/02/17 12:30 09/02/17 17:20 09/02/17 21:05 Bedside Glucose 157 180 257 H 221 H Test 09/03/17 01:08 09/03/17 05:40 09/03/17 05:56 Bedside Glucose 135 168 White Blood Count 9.8 # Red Blood Count 4.04 L Hemoglobin 10.6 L Hematocrit 33.1 L Mean Corpuscular Volume 81.9 L Mean Corpuscular Hemoglobin 26.2 L Mean Corpuscular Hemoglobin Concent 32.0 Red Cell Distribution Width 15.9 H Platelet Count 191 # Mean Platelet Volume 11.6 H Neutrophils % 65.0 Lymphocytes % 23.5 Monocytes % 8.6 Eosinophils % 1.5 Basophils % 0.4 Nucleated Red Blood Cells % 0.0 Neutrophils # 6.3 Lymphocytes # 2.3 Monocytes # 0.8 Eosinophils # 0.2 Basophils # 0.0 Nucleated Red Blood Cells # 0.0 Prothrombin Time 12.6 Prothrombin Time Ratio 1.0 INR International Normalized Ratio 0.93 Sodium Level 140 Potassium Level 4.9 Chloride Level 103 Carbon Dioxide Level 27 Anion Gap 15 Blood Urea Nitrogen 21 H Creatinine 1.05 H Glucose Level 173 Calcium Level 9.5 Medications Medications Current Medications Ondansetron HCl (Zofran Tab) 4 mg Q6H PRN PO NAUSEA AND/OR VOMITING Last administered on 08/31/17 20:55; Admin Dose 4 MG; Start 08/29/17 at 21:30 Acetaminophen (Tylenol Liquid) 650 mg Q6H PRN PO PAIN LEVEL 1-3 OR FEVER; Start 08/29/17 at 21:30 Insulin Aspart (Novolog Insulin Pen) NOVOLOG *MODERATE* ALGORI... Q4 SC Last administered on 09/03/17 06:07; Admin Dose 2 UNIT; Start 08/30/17 at 05:00 Miscellaneous Information 1 ea NOTE XX ; Start 08/30/17 at 01:15 Glucose (Glutose) 15 gm Q15M PRN PO DECREASED GLUCOSE; Start 08/30/17 at 01:15 Glucose (Glutose) 22.5 gm Q15M PRN PO DECREASED GLUCOSE; Start 08/30/17 at 01: 15 Dextrose (D50w Syringe) 25 ml Q15M PRN IV DECREASED GLUCOSE; Start 08/30/17 at 01:15 Dextrose (D50w Syringe) 50 ml Q15M PRN IV DECREASED GLUCOSE; Start 08/30/17 at 01:15 Glucagon (Glucagen) 1 mg Q15M PRN IM DECREASED GLUCOSE; Start 08/30/17 at 01: 15 Glucose (Glutose) 15 gm Q15M PRN BUCCAL DECREASED GLUCOSE; Start 08/30/17 at 01:15 Aspirin (Halfprin) 81 mg DAILY PO Last administered on 09/02/17 08:20; Admin Dose 81 MG; Start 08/30/17 at 09:00 Atorvastatin Calcium (Lipitor) 40 mg QHS PO Last administered on 09/02/17 21: 07; Admin Dose 40 MG; Start 08/30/17 at 21:00 Clopidogrel Bisulfate (plaVIX) 75 mg DAILY PO Last administered on 09/02/17 08 :20; Admin Dose 75 MG; Start 08/30/17 at 09:00 Cyanocobalamin (Vitamin B12) 500 mcg DAILY PO Last administered on 09/02/17 08 :20; Admin Dose 500 MCG; Start 08/30/17 at 09:00 Folic Acid (Folic Acid) 0.4 mg DAILY PO Last administered on 09/02/17 08:20; Admin Dose 0.4 MG; Start 08/30/17 at 09:00 Pyridoxine HCl (Vitamin B6) 100 mg DAILY PO Last administered on 09/02/17 08: 20; Admin Dose 100 MG; Start 08/30/17 at 09:00 Ranitidine HCl (Zantac) 300 mg HS PO Last administered on 09/02/17 21:07; Admin Dose 300 MG; Start 08/30/17 at 21:00 Amiodarone HCl (Cordarone) 400 mg BID PO Last administered on 09/02/17 21:08; Admin Dose 400 MG; Start 08/30/17 at 16:00 Metoprolol Tartrate (Lopressor) 12.5 mg BID PO Last administered on 08/31/17 20:56; Admin Dose 12.5 MG; Start 08/31/17 at 12:30 Cefpodoxime Proxetil (Vantin) 400 mg BID PO Last administered on 09/01/17t 22: 30; Admin Dose 400 MG; Start 09/01/17 at 10:00 Diazepam (Valium) 2.5 mg OC PO ; Start 09/02/17 at 14:30; Stop 09/03/17 at 14:29 Diphenhydramine HCl (Benadryl) 50 mg OC PO ; Start 09/02/17 at 14:30; Stop 09/03 at 14:29 KAILASH FORD MD Sep 03, 2017 07:41
--- NOTE | 2017-09-03 08:10 | RADRPT ---
PROCEDURE: XR Chest. CLINICAL INDICATION: Shortness of breath. TECHNIQUE: Single frontal view. COMPARISON: 08/29/2017. FINDINGS: The lungs are clear. The heart size is normal. There are sternal wires and mediastinal clips. Calcification is present in the aorta consistent with atherosclerosis. There is no pleural effusion. There is no pneumothorax. IMPRESSION: 1. Previous median sternotomy. 2. Clear lungs. 3. Atherosclerosis. 4. Otherwise unremarkable chest radiograph. RPTAT: QQ .Manny Mckeon MD, MD Date Time Electronically viewed and signed by .Manny Mckeon MD, MD on 09/03/2017 08:09 .R/
[2017-09-03] MEDS: METOPROLOL 25 MG TAB PO SCH (09:00)
[2017-09-03] MEDS: AMIODARONE 200 MG TAB PO SCH (09:00)
[2017-09-03] MEDS: CEFPODOXIME 200 MG TAB PO SCH (09:00)
[2017-09-03] MEDS: CYANOCOBALAMIN 500 MCG TAB PO SCH (09:05)
[2017-09-03] MEDS: PYRIDOXINE 50 MG TAB PO SCH (09:05)
[2017-09-03] MEDS: CLOPIDOGREL 75 MG TAB PO SCH (09:06)
[2017-09-03] MEDS: FOLIC ACID 0.4 MG TAB PO SCH (09:06)
[2017-09-03] MEDS: ASPIRIN (EC) 81 MG TAB PO SCH (09:06)
[2017-09-03] MEDS ORDERED: IODIXANOL LOCM 100 ML BTL ONE (09:42)
[2017-09-03] MEDS ORDERED: MIDAZOLAM 1 MG/ML 2 ML INJ ONE (09:42)
[2017-09-03] MEDS ORDERED: HEPARIN 1000 UNITS/ML 10 ML INJ ONE (09:42)
[2017-09-03] MEDS ORDERED: LIDOCAINE 1% (MDV) 20 ML INJ ONE (09:42)
[2017-09-03] MEDS ORDERED: FENTAnyl 50 MCG/ML VIAL ONE (09:43)
[2017-09-03] MEDS ORDERED: SOD CHLORIDE 0.9% 500 ML ONE (11:01)
[2017-09-03] MEDS ORDERED: VERAPAMIL 5 MG INJ ONE (11:28)
[2017-09-03] MEDS ORDERED: AL HYDROX/MG HYDROX/SIMETH 30 ML CUP PO PRN (12:00)
[2017-09-03] MEDS ORDERED: ACETAMINOPHEN 325 MG TAB PO PRN (12:00)
[2017-09-03] MEDS ORDERED: ONDANSETRON 4 MG INJ IV PRN (12:00)
[2017-09-03] MEDS: SOD CHLORIDE 0.9% 1,000 ML IV SCH ×2 (12:00→14:35)
--- NOTE | 2017-09-03 12:00 | SIPON ---
Date/Time of Note Date/Time of Note DATE: 09/03/17 TIME: 11:59 Operative Report Preoperative Diagnosis 1.NSTEMI 2.VT Postoperative Diagnosis 1.Obstructive cad 2.Patent bypass grafts x 2 Operation/Procedure Performed 1.LHC 2.Bypass graft angio 3.Ao root angio Surgeon see signature line payroll and benefits assistant 1. Angineh Anesthesia: moderate sedation Estimated blood loss: minimal Transfusion Required none Specimen NA Grafts/Implants none Complications none MARCUS TOURE Sep 03, 2017 12:00
--- NOTE | 2017-09-03 12:43 | CONS ---
Date/Time of Note Date/Time of Note DATE: 09/03/17 TIME: 12:37 Assessment/Plan Assessment/Plan Chief Complaint/Hosp Course IMPRESSION: 1. Positive troponin in the setting of ventricular tachycardia Assess for ongoing troponin elevation concerning for treatment of non-ST elevation myocardial infarction and possibly lending to ventricular tachycardia.-Very minimal uptrend and now has downtrended. NO CP. Patient with h/o 4 vessel cabg 1998 and 2 stents 2006. Now post-op s/p LHC with 100% LAD/RCA, Patent LCX with widely patent stents, patent SVG-OM and GRAYSON-LAD, 30-40% SCL stenosis 2. 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 NO recurrent VT on amio now po 3. Abnormal electrocardiogram with intraventricular conduction delay and secondary repolarization abnormalities and possible superimposed ischemic changes. 4. History of coronary artery disease, status post coronary artery bypass grafting, 1998. 5. History of percutaneous transluminal coronary angioplasty and stent placement in 2006. 6. Renal failure. 7. Septic shock on vasopressor support. 8. Hyponatremia-improved 9. Renal failure-overall improved s/p IVF hydration with some very mild renal insuff 10. Bacteremia. 11. Urinary tract infection. 12. Anemia. Recc: -Tele -Continue amiodarone at 400 daily -Continue asa/plavix/statin -Continue low dose BB as tolerated only given anam -Continue abx's and f/u cx data -Continue asa/plavix -If remains stable later this afternoon(4 hours from completion of LHC) ok for d /c from cardiac standpoint on current medications with outpatient f/u closely with primary cards and decision upon ICD placement after completion of abx's for initial sepsis Problems: Consultation Date/Type/Reason Admit Date/Time Aug 29, 2017 at 21:38 Initial Consult Date 08/30/17 Type of Consultation: cardiology Reason for Consultation VT/Nstemi Referring Provider: CHRISTINE ABRAMS MD Exam/Review of Systems Vital Signs Vitals Vital Signs Date Time Temp Pulse Resp B/P Pulse Ox O2 Delivery O2 Flow Rate FiO2 09/03/17 08:23 53 09/03/17 07:51 139/66 09/03/17 07:15 97.8 20 98 08/31/17 15:45 Room Air 08/30/17 11:45 2.0 Intake and Output 09/02/17 09/02/17 09/03/17 15:00 23:00 07:00 Intake Total 550 ml 1100 ml Balance 550 ml 1100 ml Exam Review of Systems: CONSTITUTIONAL: No fevers, chills. PULMONARY: No sob CARDIOVASCULAR: No chest pain/palpitations GASTROINTESTINAL: No nausea/vomiting. GENITOURINARY: No hematuria/dysuria. MUSCULOSKELETAL: No myagias/arthalgias. PSYCHIATRIC: The patient denies depression. NEUROLOGIC: No weakness Constitutional: alert, oriented Psych: no complaints Head: normocephalic ENMT: mucosa pink and moist Neck: jvd (9 cm water), supple Respiratory: diminished breath sounds (at bases/B) Cardiovascular: regular rate and rhythm Gastrointestinal: non-tender, soft Musculoskeletal: muscle tone (normal) Extremities: edema (none) Neurological: other (No focal deficits) Results Result Diagram: 09/03/17 0540 09/03/17 0540 Results 24 hrs Laboratory Tests Test 09/02/17 17:20 09/02/17 21:05 09/03/17 01:08 09/03/17 05:40 Bedside Glucose 257 H 221 H 135 White Blood Count 9.8 # Red Blood Count 4.04 L Hemoglobin 10.6 L Hematocrit 33.1 L Mean Corpuscular Volume 81.9 L Mean Corpuscular Hemoglobin 26.2 L Mean Corpuscular Hemoglobin Concent 32.0 Red Cell Distribution Width 15.9 H Platelet Count 191 # Mean Platelet Volume 11.6 H Neutrophils % 65.0 Lymphocytes % 23.5 Monocytes % 8.6 Eosinophils % 1.5 Basophils % 0.4 Nucleated Red Blood Cells % 0.0 Neutrophils # 6.3 Lymphocytes # 2.3 Monocytes # 0.8 Eosinophils # 0.2 Basophils # 0.0 Nucleated Red Blood Cells # 0.0 Prothrombin Time 12.6 Prothrombin Time Ratio 1.0 INR International Normalized Ratio 0.93 Sodium Level 140 Potassium Level 4.9 Chloride Level 103 Carbon Dioxide Level 27 Anion Gap 15 Blood Urea Nitrogen 21 H Creatinine 1.05 H Glucose Level 173 Calcium Level 9.5 Test 09/03/17 05:56 09/03/17 09:01 Bedside Glucose 168 172 Medications Medications Current Medications Ondansetron HCl (Zofran Tab) 4 mg Q6H PRN PO NAUSEA AND/OR VOMITING Last administered on 08/31/17 20:55; Admin Dose 4 MG; Start 08/29/17 at 21:30 Acetaminophen (Tylenol Liquid) 650 mg Q6H PRN PO PAIN LEVEL 1-3 OR FEVER; Start 08/29/17 at 21:30 Insulin Aspart (Novolog Insulin Pen) NOVOLOG *MODERATE* ALGORI... Q4 SC Last administered on 09/03/17 09:09; Admin Dose 2 UNIT; Start 08/30/17 at 05:00 Miscellaneous Information 1 ea NOTE XX ; Start 08/30/17 at 01:15 Glucose (Glutose) 15 gm Q15M PRN PO DECREASED GLUCOSE; Start 08/30/17 at 01:15 Glucose (Glutose) 22.5 gm Q15M PRN PO DECREASED GLUCOSE; Start 08/30/17 at 01: 15 Dextrose (D50w Syringe) 25 ml Q15M PRN IV DECREASED GLUCOSE; Start 08/30/17 at 01:15 Dextrose (D50w Syringe) 50 ml Q15M PRN IV DECREASED GLUCOSE; Start 08/30/17 at 01:15 Glucagon (Glucagen) 1 mg Q15M PRN IM DECREASED GLUCOSE; Start 08/30/17 at 01: 15 Glucose (Glutose) 15 gm Q15M PRN BUCCAL DECREASED GLUCOSE; Start 08/30/17 at 01:15 Aspirin (Halfprin) 81 mg DAILY PO Last administered on 09/03/17 09:06; Admin Dose 81 MG; Start 08/30/17 at 09:00 Atorvastatin Calcium (Lipitor) 40 mg QHS PO Last administered on 09/02/17 21: 07; Admin Dose 40 MG; Start 08/30/17 at 21:00 Clopidogrel Bisulfate (plaVIX) 75 mg DAILY PO Last administered on 09/03/17 09 :06; Admin Dose 75 MG; Start 08/30/17 at 09:00 Cyanocobalamin (Vitamin B12) 500 mcg DAILY PO Last administered on 09/03/17 09 :05; Admin Dose 500 MCG; Start 08/30/17 at 09:00 Folic Acid (Folic Acid) 0.4 mg DAILY PO Last administered on 09/03/17 09:06; Admin Dose 0.4 MG; Start 08/30/17 at 09:00 Pyridoxine HCl (Vitamin B6) 100 mg DAILY PO Last administered on 09/03/17 09: 05; Admin Dose 100 MG; Start 08/30/17 at 09:00 Ranitidine HCl (Zantac) 300 mg HS PO Last administered on 09/02/17 21:07; Admin Dose 300 MG; Start 08/30/17 at 21:00 Amiodarone HCl (Cordarone) 400 mg BID PO Last administered on 09/02/17 21:08; Admin Dose 400 MG; Start 08/30/17 at 16:00 Metoprolol Tartrate (Lopressor) 12.5 mg BID PO Last administered on 08/31/17 20:56; Admin Dose 12.5 MG; Start 08/31/17 at 12:30 Cefpodoxime Proxetil (Vantin) 400 mg BID PO Last administered on 09/01/17 22: 30; Admin Dose 400 MG; Start 09/01/17 at 10:00 Diazepam (Valium) 2.5 mg OC PO ; Start 09/02/17 at 14:30; Stop 09/03/17 at 14:29 Diphenhydramine HCl (Benadryl) 50 mg OC PO ; Start 09/02/17 at 14:30; Stop 09/03 at 14:29 Miscellaneous Information (* Miscellaneous Pharmacy Order) HOLD all METFORMIN ... ONCE XX ; Start 09/03/17 at 12:00; Stop 09/05/17 at 11:59 Acetaminophen (Tylenol Tab) 650 mg Q4H PRN PO NON-CARDIAC PAIN LEVEL (1-3); Start 09/03/17 at 12:00 Al Hydrox/Mg Hydrox/Simethicone (Mag-Al Plus) 30 ml Q4H PRN PO GASTROINTESTINAL UPSET; Start 09/03/17 at 12:00 Ondansetron HCl 4 mg 4 mg Q4H PRN IV NAUSEA AND/OR VOMITING; Start 09/03/17 at 12:00 Sodium Chloride (NS) 1,000 ml @ 75 mls/hr [id number] IV ; Start 09/03/17 at 12:00 ; Stop 09/03/17 at 16:59 MARCUS TOURE Sep 03, 2017 12:43
--- NOTE | 2017-09-03 13:12 | CARRPT ---
DATE OF PROCEDURE: 09/03/2017 TYPE OF PROCEDURE: 1. Left heart catheterization. 2. Coronary angiography. 3. Bypass graft angiography. 4. Aortic root angiography. 5. Measurement of left ventricular end diastolic pressure. 6. Moderate conscious sedation. ATTENDING PHYSICIAN: Dr. Marcus Downs. REFERRING PHYSICIAN: Dr. Naman Abrams TYPE OF ANESTHESIA: Conscious and local. INDICATION: Non-ST elevation myocardial infarction with sustained VT. BRIEF HISTORY: The patient is a very pleasant 77-year-old female with history of hypertension, dysl ipidemia, coronary artery disease, status post coronary bypass grafting 1998, PTCA and stent placeme nt in 2006 who initially presented with complaints of weakness, dizziness, shortness of breath, was found to be in a sustained ventricular tachycardia requiring initiation of amiodarone and lidocaine. In this setting patient ruled in for a small [id number] myocardial infarction. The patient was placed on maximal medical therapy, remained in the ICU on lidocaine and Amiodarone. Had lidocai ne weaned off and has remained in sinus rhythm. The patient had troponins trended with mild trend u p. The patient was found to be bacteremic placed on IV antibiotics and made improvement. The patie nt initially presented in addition to renal failure which has improved now been brought to the [facility] rn labor delivery in order to assess for the possibility of recurrent significant obstructive coronary art nai disease, with new symptoms of positive troponin, non-ST myocardial infarction and sustained vent ricular tachycardia. PROCEDURE: After informed consent was obtained, the patient was brought to the [facility] cardiac catheterization lab where her right groin was prepped in the usual fashion. 2% lid ocaine infiltrated in the right groin in order to achieve adequate anesthesia. With modified Seldin ryann technique, the right groin was cannulated and we attempted to pass a wire but this proved unsucc essful. We tried a Wholey wire, this proved unsuccessful and at this point, given possible obstruct ion, we decided to change axis points, so the needle was pulled out of the groin and pressure was he ld until optimal hemostasis was achieved, At this point, the patient's left radial artery was prepp ed and draped in usual sterile fashion. 2% lidocaine solution radial area, using the modified Reshma collado technique, had the left radial artery cannulated and a 6-Polish arterial sheath was placed and a 5-Polish JL3.5 catheter was used to cannulate the left main coronary ostium. With contrast inject ion, multiple views of the left coronary arterial system obtained, this was removed and a JR4 was us ed to cannulate the right coronary arterial ostium. With contrast injection, a single view of this occluded right coronary artery was obtained. JR4 was then used to subsequently cannulate a saphenou s vein graft supplying obtuse marginal which is widely patent and the GRAYSON to LAD, which distally wa s widely patent vessel supplying a decent size distal LAD. Additionally it was used to perform elizabet ography upon left subclavian revealing approximately 40% left subclavian stenosis but with excellent flow, 30-40%. Subsequently, at this time, the JR4 was removed and we used a multipurpose in an att empt to look for any possible right-sided grafts which there are found. This was removed and a left coronary artery bypass graft seeker was used to further assess for any other grafts which were to i dentify which are not found. At this time we are having very significant spasm of the patient's lef t renal artery, requiring multiple re-dosing of IV nitroglycerin and IV verapamil in addition to the 2.5 and 200 that she received with her initial radial cocktail and also had 4000 units of heparin. Subsequently, at this time, after pretreating the vessel again, a pigtail catheter was passed down into the LV and the left ventricular end-diastolic pressure was measured, pulled back across the aor tic valve to assess for significant gradient and none. At this time, aortic root angiography was do ne revealing the patient's previously identified saphenous vein graft the patient's GRAYSON and a quest ion of a another graft versus artifactual background noise. Subsequently, we attempted to pass a JR against this area to see if we can cannulate any other grafts and we did not find any other grafts. We were not sure if the patient additionally could have had an additional arteriographic on the ri t side which is not able to be reached over the left subclavian, such as a ERNESTO. Subsequently at this time, given the findings of patent grafts into circumflex distribution, LAD distribution and th e patient having severe spasm the vessels all catheters was elected to terminate this procedure. Th e patient's catheters were removed. The patient's sheath was removed. TR band was applied. There were no noted complications. FINDINGS: 1. Coronary angiography: Left main 3.5 mm with the mid body, 20% stenosis. The circumflex proxima lly is a 2.5 mm vessel and appears to have a stent and in its proximal to mid portion which is widel y patent with the distal stent having a 30% stenosis at the distal end before the vessel is a small caliber vessel, it still has excellent flow. There is a mid-branching obtuse marginal sub 2 mm vess el with no significant focal stenoses. The LAD shortly after its takeoff is 100% occluded. The pat ient's right coronary artery proximally is a 2.5 mm vessel and shortly after takeoff is 100% occlude d and has faint right to right collateral flow and additionally, there was faint left to right colla teral flow recapitulating some very distal portions, LA grade I-II originating from the patient's di stal circumflex. 2. Bypass graft angiography revealed the patient to have a widely patent saphenous vein graft suppl yun a distal obtuse marginal with no intervening stenosis and a widely patent GRAYSON arterial graft s upplying a reasonable distal size LAD with no significant intervening stenosis and no anastomotic st enosis and no further grafts were identified. 3. Subclavian artery angiography showed the patient to have an approximately 30% to 40% subclavian stenosis at its midportion. MEASUREMENTS: Left ventricular diastolic pressure of 6. No significant aortic stenosis by gradient . AORTIC ROOT ANGIOGRAPHY: This revealed the patient's widely patent saphenous vein graft to obtuse m arginal [place] left and right circulations and the patient's GRAYSON arterial graft with a questionable end of additional graft which cannot be cannulated or identified and possibly is due to artifact. TOTAL FLUOROSCOPY TIME: 14.4 minutes. TOTAL CONTRAST: 200 mL. IMPRESSION: 1. Two vessel obstructive coronary artery disease involving 100% occlusion of the patient's LAD and have occluded the patient right coronary artery. 2. Widely patent circumflex with a proximal to mid body stents with no significant in-stent resteno sis. A moderate stenosis distal to these stent. 3. Widely patent saphenous vein graft to distal obtuse marginal. 4. Widely patent left internal mammary artery to left anterior descending with no intervening steno ses. RECOMMENDATIONS: In light of procedure and findings at this time would: 1. Maximize medical management. 2. Aggressive risk factor reduction. 3. The patient to be readmitted to the telemetry floor for post-catheterization and ongoing treatme nt of her presenting symptoms. 4. The patient's results we have discussed with the treating physician. Dictated By: MARCUS LEWIS/RAFAT Conf#: [id number] DID#: [id number] CC: NAMAN ABRAMS MD;*EndCC*
--- NOTE | 2017-09-03 13:20 | RADRPT ---
Vent Rate: 67 bpm RR Interval: 0 msec VA Interval: 208 msec QRS Duration: 108 msec QT Interval: 484 msec QTC Interval: 511 msec P-R-T D[place]: 69 - -17 - 21 degrees Normal sinus rhythm Incomplete left bundle branch block T wave abnormality, consider anterior ischemia Prolonged QT Abnormal ECG Electronically Signed By: Esteban Leslie [id number]
--- NOTE | 2017-09-03 18:08 | PDOCDIS ---
Discharge Instructions DIAGNOSIS Discharge Diagnosis UTI , Ventricular Tachycardia . CONDITION Patient Condition: Good HOME CARE INSTRUCTIONS: Diet Instructions: Reduced CalorieSpecial Diet: low cholesterol diet ACTIVITY: Activity Restrictions: Rest between Activity Avoid heavy lifting Bathing Restrictions: Shower FOLLOW UP/APPOINTMENTS Follow-up Plan CHRISTINE Saavedra MD Sep 03, 2017 18:08
[2017-09-03] MEDS ORDERED: CEFP200T2 PO (18:11)
[2017-09-04] MEDS ORDERED: AMIODARONE 200 MG TAB PO SCH (09:00)
--- NOTE | 2017-09-04 11:35 | DS ---
DATE OF ADMISSION: 08/29/2017 DATE OF DISCHARGE: 09/03/2017 HISTORY OF PRESENT ILLNESS AND HOSPITAL COURSE: This 77-year-old female was in her usual state of health until 08/29/2017 when she developed some shortness of breath. She went to her primary care physician's office, Dr. Travis Suárez, and was found to be in ventricular tachycardia. She also had a urinalysis done, which was positive for urinary tract infection. The patient was short of breath and weak. The patient was taken from her primary care physician's office by paramedics to [facility] Emergency Room. In the emergency room, she was found to be in ventricular tachycardia. The patient was started on an amiodarone drip and she converted to sinus rhythm. The patient on admission was found to have an elevated troponin level of 0.263 and found to have a lactic acid level of 8.4. The patient was started on broad- spectrum antibiotics and admitted to the intensive care unit. The patient also had an elevated serum creatinine, low serum sodium and an elevated blood sugar. The patient's troponin did rise to 0.813 and then decreased. The patient was started on intravenous fluids and Levophed to support her blood pressure. She did grow E coli from her blood and urine . She was stabilized in the intensive care unit and her renal function improved. Her lactic acid level decreased. She was eventually transferred out of the ICU to a telemetry unit. She was seen in consultation by several different consultants including Dr. Romero Butler, an infectious disease specialist,and Dr. Peña Downs , a web architect . She did undergo a left heart catheterization with coronary angiogram. I will defer to Dr. Downs dictation for the details of the cardiac catheterization . In any event, he found diffuse coronary artery disease with some widely patent stents. He did not do an intervention He recommended maximum medical management, aggressive risk factor reduction. He also recommended the patient be evaluated for an implantable defibrillator device. The patient was apprised of her situation. She was ambulatory at the time of discharge and in good condition. The patient will be discharged home to the care of her family. MEDICATIONS: She will be sent home on the following medications: 1. Amiodarone 400 mg a day. 2. Acetaminophen p.r.n. pain. 3. Vantin 400 mg twice a day for another 8 days. 4. Metoprolol tartrate 12.5 mg twice a day. 5. Simvastatin 40 mg a day. 6. Ranitidine 300 mg at bedtime. 7. Aciphex 20 mg a day. 8. Levothyroxine 75 mcg a day. 9. Zolpidem XR at bedtime p.r.n. 10. Aspirin 81 mg a day. 11. Plavix 75 mg a day. 12. She will continue some of her home medications, which have included Valsartan 320 mg a day. 13. Glipizide 10 mg a day. 14. Toujeo SoloStar insulin. 15. Victoza injection. 16. Metformin 1000 mg twice a day in 2 days. The patient will follow up with her primary care physician, Dr. Travis Suárez and her web architect, Dr. Petar Walker. DISCHARGE DIAGNOSES: 1. Urinary tract infection with bacteremia. 2. Ventricular tachycardia. 3. Coronary artery disease. 4. Type 2 diabetes mellitus. 5. Hypertension. 6. Gastroesophageal reflux disease. Dictated By: CHRISTINE ABRAMS MD, ND/RAFAT Conf#: [id number] DID#: [id number] ERICK
--- NOTE | 2017-09-04 14:38 | RADRPT ---
Vent Rate: 53 bpm RR Interval: 0 msec HI Interval: 174 msec QRS Duration: 118 msec QT Interval: 530 msec QTC Interval: 497 msec P-R-T [place]: -7 - -12 - 3 degrees Sinus bradycardia Incomplete left bundle branch block Prolonged QT Abnormal ECG Electronically Signed By: Jere Ash [id number]
== END 2017-09-03 18:50 | disposition home or self-care (01) | DRG 871 ==
LOC: E/R 18:36 → ICU 21:38 → TEL 08-31 15:35
PROVIDERS: ADMIT Internal Medicine; ATTEND Internal Medicine
PROC: B2111ZZ Fluoroscopy of Multiple Coronary Arteries using Low Osmolar Contrast (ICD-10-PCS; 2017-09-03)
PROC: B2121ZZ Fluoroscopy of Single Coronary Artery Bypass Graft using Low Osmolar Contrast (ICD-10-PCS; 2017-09-03)
PROC: B3101ZZ Fluoroscopy of Thoracic Aorta using Low Osmolar Contrast (ICD-10-PCS; 2017-09-03)
PROC: B2151ZZ Fluoroscopy of Left Heart using Low Osmolar Contrast (ICD-10-PCS; 2017-09-03)
PROC: 4A0335C Measurement of Arterial Flow, Coronary, Percutaneous Approach (ICD-10-PCS; 2017-09-03)
PROC: 4A023N7 Measurement of Cardiac Sampling and Pressure, Left Heart, Percutaneous Approach (ICD-10-PCS; principal; 2017-09-03 16:00)
DX: A41.51 Sepsis due to Escherichia coli [E. coli] (principal); N17.0 Acute kidney failure with tubular necrosis; I21.4 Non-ST elevation (NSTEMI) myocardial infarction; R65.21 Severe sepsis with septic shock; I47.2 Ventricular tachycardia; E11.9 Type 2 diabetes mellitus without complications; D64.9 Anemia, unspecified; E87.1 Hypo-osmolality and hyponatremia; N39.0 Urinary tract infection, site not specified; I10 Essential (primary) hypertension; I25.10 Atherosclerotic heart disease of native coronary artery without angina pectoris; K21.9 Gastro-esophageal reflux disease without esophagitis
CPT/HCPCS: 36415; 71010; 76775; 80048; 80053; 80061; 81001; 82550; 82553; 82962; 83605; 83735; 83880; 84484; 85025; 85610; 85730; 87040; 87081; 87086; 93005; 93306; 93459; 93567; 96374; 96375; 97162; J2001; C1887; C1894; C9113; J0282; J0692; J0696; J1644; J1815; J2250; J2405; J3010; J3370; J3475; J7030; J7040; J7060; Q9967